=== PATIENT | male | born 1950 | race Caucasian/White ===

== ENCOUNTER 2019-11-30 20:42 | Emergency (ER) | payer BC, OTHER ==
--- NOTE | 2019-11-30 22:19 | ER ---
Nurse's Notes [facility] Name: Sixto Rouse Age: 69 yrs Sex: Male : 1950 Arrival Date: 11/30/2019 Time: 20:49 Bed 15 Private MD: Diagnosis: Postprocedural hemorrhage and hematoma of skin and subcutaneous tissue following a procedure-surgery, shoulder Presentation: 11/30 20:50 Presenting complaint: Patient states: L shoulder surgery today by Dr. Hampton. About 30 ca1 minutes ago,I was watching TV tonight when I felt wet on my armpits. My checked it and it squirted blood. Transition of care: patient was not received from another setting of care. Onset of symptoms was November 30, 2019. Risk Assessment: Do you want to hurt yourself or someone else? Patient reports no desire to harm self or others. Initial Sepsis Screen: Does the patient meet any 2 criteria? No. Patient's initial sepsis screen is negative. Does the patient have a suspected source of infection? No. Patient's initial sepsis screen is negative. Care prior to arrival: Gauze applied on top of existing dressing, instructed pt to apply pressure. 20:50 Method Of Arrival: Ambulatory ca1 20:50 Acuity: WAYNE 4 ca1 Historical: - Allergies: 20:53 No Known Allergies; ca1 - Home Meds: 20:53 None [Active]; ca1 - PMHx: 20:53 Arthritis; insomnia; Hernia; ca1 - PSHx: 20:53 Hernia repair; Shoulder Surg; Knee surgery; ca1 - Immunization history:: Adult Immunizations up to date, Flu vaccine is not up to date. - Coronavirus screen:: The patient has NOT traveled to [place] in the past 14 days. The patient has NOT had contact with known/suspected case of Coronavirus?. - Social history:: Smoking status: Patient reports the use of cigarette tobacco products, smokes one-half pack cigarettes per day. - Ebola Screening: : Patient negative for fever greater than or equal to 101.5 degrees Fahrenheit, and additional compatible Ebola Virus Disease symptoms Patient denies exposure to infectious person Patient denies travel to an Ebola-affected area in the 21 days before illness onset No symptoms or risks identified at this time. Screenin:40 Tuberculosis screening: No symptoms or risk factors identified. sg 22:40 Abuse screen: Denies threats or abuse. Denies injuries from another. Nutritional sg screening: No deficits noted. Fall Risk None identified. Assessment: 22:40 General: Appears in no apparent distress. well groomed, well developed, well nourished, sg Behavior is calm, cooperative, appropriate for age. Pain: Complains of pain in dorsal aspect of left forearm Quality of pain is described as aching. Neuro: Level of Consciousness is awake, alert, obeys commands, Oriented to person, place, time, situation. Cardiovascular: Patient's skin is warm and dry. Chest pain is denied. Respiratory: Airway is patent Respiratory effort is even, unlabored, Respiratory pattern is regular, symmetrical. GI: No signs and/or symptoms were reported involving the gastrointestinal system. : No signs and/or symptoms were reported regarding the genitourinary system. EENT: No signs and/or symptoms were reported regarding the EENT system. Derm: Skin is pink, warm \T\ dry. Musculoskeletal: Circulation, motion, and sensation intact. Injury Description: a surgical incision is noted with ilia that are intact, bright red blood from the lower part of the incision is reported once the area is squeezed, per pt . Vital Signs: 20:53 BP 159 / 89; Pulse 121; Resp 19 S; Pulse Ox 98% on R/A; Weight 90.72 kg (R); Height 6 ca1 ft. 2 in. (187.96 cm) (R); 22:30 BP 142 / 70; Pulse 90; Resp 17; Pulse Ox 100% on R/A; sg 22:34 BP 144 / 80; Temp 98.2; sg 20:53 Body Mass Index 25.68 (90.72 kg, 187.96 cm) ca1 ED Course: 20:49 Patient arrived in ED. ag3 20:52 Triage completed. ca1 20:53 Arm band placed on right wrist. ca1 21:10 Ronan Khan MD is Attending Physician. mike 22:15 Usman Lopez MD is Referral Physician. mike 22:15 Dressings: non-adherent dressing x 1 left shoulder. Wound care: to surgical incision sg located on left shoulder was cleaned with Hibiclens, dressed with 4X4s, SurgiCil, Patient tolerated well. 22:29 Ramu Gómez RN is Primary Nurse. sg 22:40 Patient has correct armband on for positive identification. Bed in low position. Call sg light in reach. 22:40 No provider procedures requiring assistance completed. Patient did not have IV access sg during this emergency room visit. Administered Medications: No medications were administered Outcome: 22:18 Discharge ordered by . mike 22:40 Discharged to home ambulatory, with family. sg 22:40 Condition: good 22:40 Discharge instructions given to patient, family, Instructed on discharge instructions, follow up and referral plans. wound care, Demonstrated understanding of instructions, follow-up care, wound care. 22:43 Patient left the ED. sg Signatures: Ramu Gómez, RN RN Ronan Moya MD MD cha Gomez, Alice ag3 Patito Snowden RN RN ca1
--- NOTE | 2019-11-30 22:19 | EDPHYS ---
Physician Documentation [facility] Name: Sixto Rouse Age: 69 yrs Sex: Male : 1950 Arrival Date: 11/30/2019 Time: 20:49 Bed 15 Private MD: ELIGIO Physician Ronan Khan HPI: 11/30 22:12 This 69 yrs old Male presents to ER via Ambulatory with complaints of Post mike Surgical Bleeding. 22:12 The patient or guardian complains of decreased range of motion, pain, bleeding. left mike shoulder. Context: The problem was sustained at home, at a had shoulder surgery today, no chest pain, no sob , no nv. Associated signs and symptoms: The patient has no apparent associated signs or symptoms. Severity of symptoms: At their worst the symptoms were mild, in the emergency department the symptoms are unchanged. The patient has not experienced similar symptoms in the past. Historical: - Allergies: 20:53 No Known Allergies; ca1 - Home Meds: 20:53 None [Active]; ca1 - PMHx: 20:53 Arthritis; insomnia; Hernia; ca1 - PSHx: 20:53 Hernia repair; Shoulder Surg; Knee surgery; ca1 - Immunization history:: Adult Immunizations up to date, Flu vaccine is not up to date. - Coronavirus screen:: The patient has NOT traveled to [place] in the past 14 days. The patient has NOT had contact with known/suspected case of Coronavirus?. - Social history:: Smoking status: Patient reports the use of cigarette tobacco products, smokes one-half pack cigarettes per day. - Ebola Screening: : Patient negative for fever greater than or equal to 101.5 degrees Fahrenheit, and additional compatible Ebola Virus Disease symptoms Patient denies exposure to infectious person Patient denies travel to an Ebola-affected area in the 21 days before illness onset No symptoms or risks identified at this time. ROS: 22:12 Constitutional: Negative for fever, chills, and weight loss, Eyes: Negative for injury, mike pain, redness, and discharge, ENT: Negative for injury, pain, and discharge, Neck: Negative for injury, pain, and swelling, Cardiovascular: Negative for chest pain, palpitations, and edema, Respiratory: Negative for shortness of breath, cough, wheezing, and pleuritic chest pain, Abdomen/GI: Negative for abdominal pain, nausea, vomiting, diarrhea, and constipation, Back: Negative for injury and pain, : Negative for injury, bleeding, discharge, and swelling, Skin: Negative for injury, rash, and discoloration, Neuro: Negative for headache, weakness, numbness, tingling, and seizure, Psych: Negative for depression, anxiety, suicide ideation, homicidal ideation, and hallucinations, Allergy/Immunology: Negative for hives, rash, and allergies, Endocrine: Negative for neck swelling, polydipsia, polyuria, polyphagia, and marked weight changes, Hematologic/Lymphatic: Negative for swollen nodes, abnormal bleeding, and unusual bruising. 22:12 MS/extremity: Positive for pain, warmth, of the anterior aspect of left shoulder and posterior aspect of left shoulder. Exam: 22:12 Constitutional: This is a well developed, well nourished patient who is awake, alert, mike and in no acute distress. Head/Face: Normocephalic, atraumatic. Eyes: Pupils equal round and reactive to light, extra-ocular motions intact. Lids and lashes normal. Conjunctiva and sclera are non-icteric and not injected. Cornea within normal limits. Periorbital areas with no swelling, redness, or edema. ENT: Nares patent. No nasal discharge, no septal abnormalities noted. Tympanic membranes are normal and external auditory canals are clear. Oropharynx with no redness, swelling, or masses, exudates, or evidence of obstruction, uvula midline. Mucous membranes moist. Neck: Trachea midline, no thyromegaly or masses palpated, and no cervical lymphadenopathy. Supple, full range of motion without nuchal rigidity, or vertebral point tenderness. No Meningismus. Chest/axilla: Normal chest wall appearance and motion. Nontender with no deformity. No lesions are appreciated. Cardiovascular: Regular rate and rhythm with a normal S1 and S2. No gallops, murmurs, or rubs. Normal PMI, no JVD. No pulse deficits. Respiratory: Lungs have equal breath sounds bilaterally, clear to auscultation and percussion. No rales, rhonchi or wheezes noted. No increased work of breathing, no retractions or nasal flaring. Abdomen/GI: Soft, non-tender, with normal bowel sounds. No distension or tympany. No guarding or rebound. No evidence of tenderness throughout. Back: No spinal tenderness. No costovertebral tenderness. Full range of motion. Male : Normal genitalia with no discharge or lesions. Skin: Warm, dry with normal turgor. Normal color with no rashes, no lesions, and no evidence of cellulitis. Neuro: Awake and alert, GCS 15, oriented to person, place, time, and situation. Cranial nerves II-XII grossly intact. Motor strength 5/5 in all extremities. Sensory grossly intact. Cerebellar exam normal. Normal gait. Psych: Awake, alert, with orientation to person, place and time. Behavior, mood, and affect are within normal limits. 22:12 Musculoskeletal/extremity: ROM: limited active range of motion due to pain, limited passive range of motion due to pain, Circulation is intact in all extremities. Sensation intact. Compartment Syndrome exam of affected extremity: is normal. DVT Exam: negative Homans' sign noted on exam, no appreciated bluish discoloration, no erythema, no increased warmth, pain, swelling, tenderness. Vital Signs: 20:53 BP 159 / 89; Pulse 121; Resp 19 S; Pulse Ox 98% on R/A; Weight 90.72 kg (R); Height 6 ca1 ft. 2 in. (187.96 cm) (R); 22:30 BP 142 / 70; Pulse 90; Resp 17; Pulse Ox 100% on R/A; sg 22:34 BP 144 / 80; Temp 98.2; sg 20:53 Body Mass Index 25.68 (90.72 kg, 187.96 cm) ca1 MDM: 21:10 Patient medically screened. [facility] 22:15 Data reviewed: vital signs, nurses notes. [facility] 11/30 22:10 Order name: Vital Signs; Complete Time: 22:30 [facility] 11/30 22:12 Order name: Wound dressing: surgicel, xeroform, pressure dress; Complete Time: 22:30 [facility] Administered Medications: No medications were administered Disposition: 11/30/19 22:18 Discharged to Home. Impression: Postprocedural hemorrhage and hematoma of skin and subcutaneous tissue following a procedure - surgery, shoulder. - Condition is Stable. - Discharge Instructions: Stitches, Shelby, or Adhesive Wound Closure, Sutured Wound Care, Wound Check, Sutured Wound Care, [id number], Wound Care, Stitches, Shelby, or Adhesive Wound Closure, [id number]. - Medication Reconciliation Form, Thank You Letter, Antibiotic Education, Prescription Opioid Use form. - Follow up: Usman Lopez MD; When: 1 - 2 days; Reason: Recheck today's complaints, Continuance of care, Re-evaluation by your physician. - Problem is new. - Symptoms have improved. Signatures: Ramu Gómez RN RN Ronan Moya MD MD cha Acob, Cheryl, RN RN [facility] Corrections: (The following items were deleted from the chart) 22:43 22:18 11/30/2019 22:18 Discharged to Home. Impression: Postprocedural hemorrhage and sg hematoma of skin and subcutaneous tissue following a procedure - surgery, shoulder. Condition is Stable. Forms are Medication Reconciliation Form, Thank You Letter, Antibiotic Education, Prescription Opioid Use. Follow up: Usman Lopez; When: 1 - 2 days; Reason: Recheck today's complaints, Continuance of care, Re-evaluation by your physician. Problem is new. Symptoms have improved. mike
== END 2019-11-30 22:43 | disposition home or self-care (01) ==
LOC: ER 20:42
DX: L76.32 Postprocedural hematoma of skin and subcutaneous tissue following other procedure (principal); F17.210 Nicotine dependence, cigarettes, uncomplicated
CPT/HCPCS: 99283

== ENCOUNTER 2021-05-25 12:28 | Inpatient (IN) | payer OTHER ==
[2021-05-25] MEDS ORDERED: ALBUTEROL 2.5 MG/3 ML NEB SOL ONE (13:53)
[2021-05-25] MEDS ORDERED: IPRATROPIUM BROM 0.5MG/2.5ML ONE (13:53)
--- NOTE | 2021-05-25 13:56 | RAD REPORT ---
EXAM DESCRIPTION: RAD - Chest Single View - 05/25/2021 1:46 pm CLINICAL HISTORY: SOB COMPARISON: Chest Single View dated 10/27/2017 FINDINGS: Patchy airspace disease bilaterally. This is moderate in severity. The heart size is withi n normal limits.No acute osseous abnormality. No significant pleural effusions or pneumothorax. IMPRESSION: Moderate patchy airspace disease bilaterally concerning for multifocal pneumonia, includ ing Covid-19.
[2021-05-25] MEDS ORDERED: dexAMETHasone 10 MG/ML VIAL ONE (14:36)
[2021-05-25 15:04] LABS: Absolute Lymphocytes (CBC) 0.6 K/uL (0.7-4.9); Basophils % 0.3 % (0-1.3); Hematocrit 40.9 % (39.6-49.0); Lymphocytes % 5.2 % (15.3-44.8); MPV 8.9 fL (7.6-11.3); RBC Red Blood Cell Count 4.71 M/uL (4.33-5.43)
[2021-05-25 15:28] LABS: ALT/SGPT 106 U/L (12-78); AST/SGOT 93 U/L (15-37); Albumin 3.4 g/dL (3.4-5.0); Alkaline Phosphatase 70 U/L (45-117); BUN Blood Urea Nitrogen 23 mg/dL (7-18); Bicarbonate 27 mmol/L (21-32); Bilirubin Direct 0.5 mg/dL (0-0.2); Bilirubin Total 1.1 mg/dL (0.2-1.0); Ferritin 1625.3 ng/mL (26-388); Glucose Level 105 mg/dL (74-106); Lipase 116 U/L (73-393); Potassium 3.5 mmol/L (3.5-5.1); Sodium Level 138 mmol/L (136-145); Troponin (Emerg Dept Use Only) < 0.02 ng/mL (0.0-0.045)
[2021-05-25 15:30] LABS: Protime INR 1.22
[2021-05-25] MEDS ORDERED: CEFTRIAXONE/SWI 1gm 1 GM/10 ML SYR ONE (15:40)
--- NOTE | 2021-05-25 16:25 | RAD REPORT ---
EXAM DESCRIPTION: CT - Chest For Pe Angio - 05/25/2021 4:11 pm CLINICAL HISTORY: Cough;SOB COMPARISON: No comparisons FINDINGS: Chest Wall: No suspicious thyroid nodules or pathologic lymphadenopathy. Lungs: Moderate bilateral airspace disease There is a 9 millimeter nodule in the right middle lobe. Pleura: No significant effusions or pneumothorax. Mediastinum/britney: No pathologic lymphadenopathy. Pulmonary arteries/Aorta: No filling defect identified. No aortic aneurysm. Enlarged main pulmonary a rtery. Heart: No significant pericardial effusion. Normal heart size. Upper abdomen: No acute abnormality. Bones: No acute abnormality. IMPRESSION: Negative for pulmonary embolism. Moderate bilateral airspace disease concerning for mult ifocal pneumonia, including Covid-19. 9 millimeter right middle lobe solid nodule. Recommend three-month follow-up chest CT.
[2021-05-25 17:26] LABS: Blood Morphology Comment NOT SEEN (NOT SEEN); Platelet Estimate ADEQ; White Blood Cell Scan OK (OK)
[2021-05-25] MEDS ORDERED: MORPHINE 2 MG/ML SYR IV PRN (19:00)
[2021-05-25] MEDS ORDERED: ONDANSETRON 4 MG/2 ML VIAL IV PRN (19:00)
--- NOTE | 2021-05-25 19:43 | ER ---
Nurse's Notes [facility] Name: Sixto Rouse Age: 71 yrs Sex: Male : 1950 Arrival Date: 05/25/2021 Time: 12:57 Bed 18 Private MD: Diagnosis: SARS-associated coronavirus as the cause of diseases classified elsewhere;Other viral pneumonia;Respiratory failure, unspecified with hypoxia Presentation: 05/25 13:18 Chief complaint: EMS states: Patient is COVID positive since 05/15/21.SOB increased ss over three days 83% on RA 96% on NRB. Coronavirus screen: Client reports previous positive COVID test result. Date of collection: May 15, 2021. 13:18 Method Of Arrival: EMS: [facility] ss 14:10 Ebola Screen: No symptoms or risks identified at this time. Initial Sepsis Screen: Does zb the patient meet any 2 criteria? No. Patient's initial sepsis screen is negative. Does the patient have a suspected source of infection? Yes: No. Patient's initial sepsis screen is negative. Risk Assessment: Do you want to hurt yourself or someone else? Patient reports no desire to harm self or others. Onset of symptoms was May 25, 2021. 14:10 Acuity: WAYNE 2 zb 14:10 Acuity: WAYNE 3 zb Triage Assessment: 15:04 Pain: Denies pain. zb Historical: - PMHx: 14:12 Arthritis; Hernia; insomnia; zb - PSHx: 14:12 None; zb - Immunization history:: Client reports having NOT received the Covid vaccine. - Social history:: Smoking status: Patient reports the use of cigarette tobacco products, smokes one-half pack cigarettes per day. Screenin:08 Abuse screen: Denies threats or abuse. Denies injuries from another. Nutritional zb screening: No deficits noted. Tuberculosis screening: No symptoms or risk factors identified. Fall Risk None identified. Assessment: 14:09 General: Appears uncomfortable, Behavior is calm, cooperative, Reports fever for > 3 zb days, feeling ill for > 3 days, fatigue for >3 days. Neuro: Level of Consciousness is awake, alert, obeys commands, Oriented to person, place, time, situation, Moves all extremities. Full function. Cardiovascular: Patient's skin is warm and dry. Respiratory: Reports shortness of breath at rest Airway is patent Respiratory effort is even, unlabored, Respiratory pattern is regular, symmetrical, Breath sounds are diminished bilaterally. Onset: The symptoms/episode began/occurred 2-3 days ago , the patient has mild shortness of breath. GI: No deficits noted. Derm: Skin is intact, is healthy with good turgor, Skin is dry, Skin is normal. Musculoskeletal: Range of motion: intact in all extremities. 15:02 Reassessment: Patient appears in no apparent distress at this time. Patient and/or zb family updated on plan of care and expected duration. Pain level reassessed. Patient is alert, oriented x 3, equal unlabored respirations, skin warm/dry/pink. 16:30 Reassessment: Patient appears in no apparent distress at this time. Patient and/or zb family updated on plan of care and expected duration. Pain level reassessed. Patient remains on 3L NC at this time. No c/o at this time. denies pain. 17:35 Reassessment: Patient appears in no apparent distress at this time. Patient and/or zb family updated on plan of care and expected duration. Pain level reassessed. Patient remains at 3L NC. no changes at this time. Given urine and remind to urinate. 18:35 Reassessment: Patient appears in no apparent distress at this time. Patient and/or zb family updated on plan of care and expected duration. Pain level reassessed. patient remains on 3L NC. no change at this time. RR WNL. Vital Signs: 13:18 BP 106 / 65; Pulse 109; Pulse Ox 96% on Non-rebreather mask; ss 14:06 BP 139 / 73; Pulse 105; Resp 20; Temp 97.9(TE); Pulse Ox 94% on 3 lpm NC; Weight 95.25 zb kg; Height 6 ft. 3 in. (190.50 cm); Pain 0/10; 15:02 BP 113 / 62; Pulse 88; Resp 20; Pulse Ox 95% on 3 lpm NC; zb 16:45 BP 108 / 76; Pulse 62; Resp 18; Pulse Ox 100% 3 lpm ; zb 17:45 BP 105 / 68; Pulse 83; Resp 19; Pulse Ox 100% on 3 lpm NC; zb 18:33 BP 101 / 75; Pulse 109; Resp 18; Pulse Ox 100% on 3 lpm NC; zb 14:06 Body Mass Index 26.25 (95.25 kg, 190.50 cm) zb ED Course: 12:57 Patient arrived in ED. kdr 12:57 Kolton Herrera MD is Attending Physician. kdr 13:44 CXR XRAY In Process Unspecified. EDMS 14:05 Mavis Falcon RN is Primary Nurse. zb 14:11 Triage completed. zb 14:11 Arm band placed on. zb 14:45 Initial lab(s) drawn, by ED staff, sent to lab. First set of blood cultures drawn by ED zb staff, EKG done, by ED staff, reviewed by Kolton Herrera MD. 15:03 Inserted saline lock: 20 gauge in left antecubital area, using aseptic technique. Blood zb collected. 15:04 Patient has correct armband on for positive identification. Bed in low position. Call zb light in reach. Side rails up X 1. mail forwarding system markup clerk on. Pulse ox on. NIBP on. Door closed. Noise minimized. 16:11 CT Chest For PE Angio In Process Unspecified. EDMS 19:41 Deniz Minor MD is Hospitalizing Provider. kdr 05/28 06:11 Primary Nurse role handed off by Mavis Falcon RN mw2 Administered Medications: 05/25 14:13 Drug: Xopenex (levalbuterol) (3) 1.25 mg {Note: administered by RT .} Route: Inhalation;zb 15:44 Follow up: Response: No adverse reaction; Marked relief of symptoms zb 14:40 Drug: Decadron - Dexamethasone 10 mg Route: IVP; Site: left antecubital; zb 15:43 Follow up: Response: No adverse reaction; Marked relief of symptoms zb 15:41 Drug: Rocephin - (cefTRIAXone) 1 grams Route: IVPB; Infused Over: 30 mins; Site: left zb antecubital; Outcome: 19:42 Decision to Hospitalize by Provider. kdr 05/28 14:19 Patient left the ED. iw Signatures: Dispatcher [employer] EDMS Kolton Herrera MD MD [facility] Mable Bojorquez RN RN Misty Ashby RN RN Naman Benton mw2 Mavis Falcon, RN RN zb Corrections: (The following items were deleted from the chart) 05/25 16:40 13:18 Chief complaint: EMS states: Patient is COVID positive since 05/15/21.SOB ss increased over three days *3% on RA 96% on NRB ss
--- NOTE | 2021-05-25 19:43 | EDPHYS ---
Physician Documentation [facility] Name: Sixto Rouse Age: 71 yrs Sex: Male : 1950 Arrival Date: 05/25/2021 Time: 12:57 Bed 18 Private MD: ED Physician Kolton Herrera HPI: 05/25 19:05 This 71 yrs old Male presents to ER via EMS with complaints of Shortness of kdr breath and chest pain. 19:05 The patient has shortness of breath at rest, with light activity. Onset: The kdr symptoms/episode began/occurred gradually, The patient was diagnosed with Covid on May 15. Since then he has become increasingly short of breath. At home for the last 3 days he has been satting in the mid 80s. On nonrebreather mask he improved to 96%.. Duration: The symptoms are continuous, and are steadily getting worse. The patient's shortness of breath is aggravated by exertion, light activity. Associated signs and symptoms: Pertinent positives: chest pain, dizziness, nausea. Severity of symptoms: At their worst the symptoms were mild moderate in the emergency department the symptoms are unchanged. The patient has not experienced similar symptoms in the past. The patient has been recently seen by a physician: the patient's primary care provider. Historical: - PMHx: 14:12 Arthritis; Hernia; insomnia; zb - PSHx: 14:12 None; zb - Immunization history:: Client reports having NOT received the Covid vaccine. - Social history:: Smoking status: Patient reports the use of cigarette tobacco products, smokes one-half pack cigarettes per day. ROS: 19:05 Constitutional: Negative for fever, chills, and weight loss, Eyes: Negative for injury, kdr pain, redness, and discharge, ENT: Negative for injury, pain, and discharge, Neck: Negative for injury, pain, and swelling, Cardiovascular: Negative for chest pain, palpitations, and edema, Abdomen/GI: Negative for abdominal pain, nausea, vomiting, diarrhea, and constipation, Back: Negative for injury and pain, : Negative for injury, bleeding, discharge, and swelling, MS/Extremity: Negative for injury and deformity, Skin: Negative for injury, rash, and discoloration, Neuro: Negative for headache, weakness, numbness, tingling, and seizure activity. Psych: Negative for depression, anxiety, suicide ideation, homicidal ideation, and hallucinations, Allergy/Immunology: Negative for hives, rash, and allergies, Endocrine: Negative for neck swelling, polydipsia, polyuria, polyphagia, and marked weight changes, Hematologic/Lymphatic: Negative for swollen nodes, abnormal bleeding, and unusual bruising. 19:05 Respiratory: Positive for dyspnea on exertion, shortness of breath, on exertion. Negative for hemoptysis, orthopnea, pleurisy, wheezing. Exam: 19:05 Constitutional: This is a well developed, well nourished patient who is awake, alert, kdr and in no acute distress. Head/Face: Normocephalic, atraumatic. Eyes: Pupils equal round and reactive to light, extra-ocular motions intact. Lids and lashes normal. Conjunctiva and sclera are non-icteric and not injected. Cornea within normal limits. Periorbital areas with no swelling, redness, or edema. Neck: Trachea midline, no thyromegaly or masses palpated, and no cervical lymphadenopathy. Supple, full range of motion without nuchal rigidity, or vertebral point tenderness. No Meningismus. Chest/axilla: Normal chest wall appearance and motion. Nontender with no deformity. No lesions are appreciated. Cardiovascular: Regular rate and rhythm with a normal S1 and S2. No gallops, murmurs, or rubs. Normal PMI, no JVD. No pulse deficits. Abdomen/GI: Soft, non-tender, with normal bowel sounds. No distension or tympany. No guarding or rebound. No evidence of tenderness throughout. Back: No spinal tenderness. No costovertebral tenderness. Full range of motion. Skin: Warm, dry with normal turgor. Normal color with no rashes, no lesions, and no evidence of cellulitis. MS/ Extremity: Pulses equal, no cyanosis. Neurovascular intact. Full, normal range of motion. Neuro: Awake and alert, GCS 15, oriented to person, place, time, and situation. Cranial nerves II-XII grossly intact. Motor strength 5/5 in all extremities. Sensory grossly intact. Cerebellar exam normal. Normal gait. Psych: Awake, alert, with orientation to person, place and time. Behavior, mood, and affect are within normal limits. 19:05 Respiratory: mild respiratory distress is noted, Respirations: normal, Breath sounds: rales, rhonchi, + upper airway congestion. wheezing: that is moderate, is heard diffusely. Vital Signs: 13:18 BP 106 / 65; Pulse 109; Pulse Ox 96% on Non-rebreather mask; ss 14:06 BP 139 / 73; Pulse 105; Resp 20; Temp 97.9(TE); Pulse Ox 94% on 3 lpm NC; Weight 95.25 zb kg; Height 6 ft. 3 in. (190.50 cm); Pain 0/10; 15:02 BP 113 / 62; Pulse 88; Resp 20; Pulse Ox 95% on 3 lpm NC; zb 16:45 BP 108 / 76; Pulse 62; Resp 18; Pulse Ox 100% 3 lpm ; zb 17:45 BP 105 / 68; Pulse 83; Resp 19; Pulse Ox 100% on 3 lpm NC; zb 18:33 BP 101 / 75; Pulse 109; Resp 18; Pulse Ox 100% on 3 lpm NC; zb 14:06 Body Mass Index 26.25 (95.25 kg, 190.50 cm) zb MDM: 19:05 Differential diagnosis: Anemia CHF exacerbation, Chronic Obstructive Pulmonary Disease kdr pneumonia. Data reviewed: vital signs, nurses notes. Counseling: I had a detailed discussion with the patient and/or guardian regarding: the historical points, exam findings, and any diagnostic results supporting the discharge/admit diagnosis, lab results, radiology results. ED course: Patient remained stable in the emergency department. He was admitted to the hospitalist service without complication.. 19:42 Patient medically screened. kdr 05/25 13:03 Order name: BMP kdr 05/25 13:03 Order name: Blood Culture Adult (2) kdr 05/25 13:03 Order name: C-Reactive Protein kdr 05/25 13:03 Order name: CBC with Diff kdr 05/25 13:03 Order name: D-Dimer kdr 05/25 13:03 Order name: Ferritin; Complete Time: 15:34 kdr 05/25 13:03 Order name: Flu; Complete Time: 16:35 kdr 05/25 13:03 Order name: LFT's; Complete Time: 15:34 kdr 05/25 13:03 Order name: Lactate; Complete Time: 15:34 kdr 05/25 13:03 Order name: Lipase; Complete Time: 15:34 kdr 05/25 13:03 Order name: PT-INR; Complete Time: 15:34 kdr 05/25 13:03 Order name: Procalcitonin; Complete Time: 15:34 kdr 05/25 13:03 Order name: Ptt, Activated; Complete Time: 15:34 kdr 05/25 13:03 Order name: Strep; Complete Time: 15:34 kdr 05/25 13:03 Order name: Troponin (emerg Dept Use Only); Complete Time: 15:34 kdr 05/25 13:03 Order name: Urine Microscopic Only kdr 05/25 13:04 Order name: Basic Metabolic Panel; Complete Time: 15:34 EDMS 05/25 13:04 Order name: Blood Culture EDMS 05/25 13:04 Order name: C-Reactive Protein; Complete Time: 15:34 EDMS 05/25 13:04 Order name: CBC with Automated Diff EDMS 05/25 13:04 Order name: D-Dimer; Complete Time: 15:34 EDMS 05/25 15:27 Order name: Throat Culture EDMS 05/25 17:26 Order name: CBC Smear Scan EDMS 05/25 19:02 Order name: C-Reactive Protein EDMS 05/25 19:02 Order name: C-Reactive Protein EDMS 05/25 19:02 Order name: Comprehensive Metabolic Panel EDMS 05/25 19:02 Order name: Comprehensive Metabolic Panel EDMS 05/25 19:02 Order name: D-Dimer EDMS 05/25 19:02 Order name: D-Dimer EDMS 05/25 19:02 Order name: Ferritin EDMS 05/25 13:03 Order name: CXR XRAY; Complete Time: 14:53 kdr 05/25 13:03 Order name: EKG; Complete Time: 13:04 kdr 05/25 13:03 Order name: Cardiac monitoring; Complete Time: 15:12 kdr 05/25 13:03 Order name: Droplet/Contact Precautions; Complete Time: 15:12 kdr 05/25 13:03 Order name: EKG - Nurse/Tech; Complete Time: 15:12 kdr 05/25 15:36 Order name: CT Chest For PE Angio; Complete Time: 16:35 kdr 05/25 19:02 Order name: Ferritin EDMS 05/25 19:02 Order name: Lipid Profile EDMS 05/25 19:02 Order name: Lipid Profile EDMS 05/25 19:03 Order name: Regular EDMS 05/25 19:03 Order name: CBC with Automated Diff EDMS 05/25 19:03 Order name: CBC with Automated Diff EDMS 05/25 22:29 Order name: Urine Dipstick-Ancillary EDMS 05/26 10:17 Order name: Glucose, Ancillary Testing EDMS 05/26 14:02 Order name: US EDMS 05/27 04:11 Order name: CBC with Automated Diff EDMS 05/27 04:24 Order name: Comprehensive Metabolic Panel EDMS 05/27 04:24 Order name: C-Reactive Protein EDMS 05/27 04:24 Order name: Magnesium EDMS 05/27 04:24 Order name: Ferritin EDMS 05/27 05:35 Order name: Manual Differential EDMS 05/27 08:02 Order name: Urine Culture EDMS 05/27 08:23 Order name: RAD EDMS 05/28 03:44 Order name: Comprehensive Metabolic Panel EDMS 05/28 03:44 Order name: C-Reactive Protein EDMS 05/28 03:44 Order name: Magnesium EDMS 05/28 03:44 Order name: Ferritin EDMS 05/28 03:47 Order name: CBC with Automated Diff EDMS 05/25 13:03 Order name: IV Start; Complete Time: 15:44 kdr 05/25 13:03 Order name: Labs collected and sent; Complete Time: 15:45 kdr 05/25 13:03 Order name: O2 Per Protocol; Complete Time: 15:12 kdr 05/25 13:03 Order name: O2 Sat Monitoring; Complete Time: 15:12 kdr 05/25 13:03 Order name: Urine Dipstick-Ancillary (obtain specimen); Complete Time: 22:44 kdr Administered Medications: 14:13 Drug: Xopenex (levalbuterol) (3) 1.25 mg {Note: administered by RT .} Route: Inhalation;zb 15:44 Follow up: Response: No adverse reaction; Marked relief of symptoms zb 14:40 Drug: Decadron - Dexamethasone 10 mg Route: IVP; Site: left antecubital; zb 15:43 Follow up: Response: No adverse reaction; Marked relief of symptoms zb 15:41 Drug: Rocephin - (cefTRIAXone) 1 grams Route: IVPB; Infused Over: 30 mins; Site: left zb antecubital; Disposition Summary: 05/25/21 19:42 Hospitalization Ordered Hospitalization Status: Inpatient Admission kdr Provider: Deniz Minor Condition: Fair kdr Problem: new kdr Symptoms: have improved kdr Bed/Room Type: Standard kdr Location: Telemetry/MedSurg (Inpatient)(05/28/21 12:39) dw Room Assignment: 427(05/28/21 12:39) dw Diagnosis - SARS-associated coronavirus as the cause of diseases classified elsewhere kdr - Other viral pneumonia kdr - Respiratory failure, unspecified with hypoxia kdr Forms: - Medication Reconciliation Form kdr - SBAR form kdr Signatures: Dispatcher [employer] EDMS Jacey Kirby RN Isabelle Borrero RN Kolton Penaloza MD MD kdr Smirch, Shelby, RN RN ss Brown, Zipporah, RN RN zb Corrections: (The following items were deleted from the chart) 20:33 19:42 Telemetry/MedSurg (Inpatient) kdr mw 20:33 19:42 kdr mw 22:44 13:03 Sanders ordered. kdr ld1 05/28 12:39 05/25 20:33 [facility] ER HOLD mw dw 05/28 12:39 05/25 20:33 ERHOLD- mw dw
[2021-05-25 20:53] VITALS: BMI 26.6
[2021-05-25] MEDS: APIXABAN 5 MG TABLET PO SCH (21:00)
[2021-05-25] MEDS ORDERED: METHYLPREDNISOLONE 40 MG INJ IV SCH (21:00)
[2021-05-25 22:28] LABS: Urine Blood Negative (Negative); Urine Glucose Negative (Negative); Urine Protein 1+ (Negative); Urine Specific Gravity 1.015 (1.005-1.030); Urine pH 5.5 (5.0-7.0)
[2021-05-25] MEDS ORDERED: METHYLPREDNISOLONE 40 MG INJ ONE (22:39)
[2021-05-25] MEDS ORDERED: APIXABAN 5 MG TABLET ONE (22:39)
[2021-05-25 22:48] LABS: Urine Bacteria 20-50 /HPF (NONE SEEN); Urine Mucus 1+ /HPF (NONE SEEN); Urine RBC <5 /HPF (NONE SEEN)
[2021-05-26 04:46] LABS: Absolute Lymphocytes (CBC) 0.4 K/uL (0.7-4.9); Basophils % 0.2 % (0-1.3); Hematocrit 37.3 % (39.6-49.0); Lymphocytes % 5.8 % (15.3-44.8); MPV 8.2 fL (7.6-11.3); RBC Red Blood Cell Count 4.33 M/uL (4.33-5.43)
[2021-05-26 05:21] LABS: ALT/SGPT 76 U/L (12-78); AST/SGOT 57 U/L (15-37); Albumin 2.9 g/dL (3.4-5.0); Alkaline Phosphatase 55 U/L (45-117); BUN Blood Urea Nitrogen 24 mg/dL (7-18); Bicarbonate 30 mmol/L (21-32); Bilirubin Total 0.6 mg/dL (0.2-1.0); Ferritin 1563.6 ng/mL (26-388); Glucose Level 147 mg/dL (74-106); HDL Cholesterol 52 mg/dL (40-60); LDL Cholesterol, Calculated 54 (<130); Potassium 4.3 mmol/L (3.5-5.1); Protein, Total 7.2 g/dL (6.4-8.2); Sodium Level 137 mmol/L (136-145)
--- NOTE | 2021-05-26 05:41 | P.HP ---
Certification for Inpatient Patient admitted to: Inpatient With expected LOS: >2 Midnights Patient will require the following post-hospital care: None Practitioner: I am a practitioner with admitting privileges, knowledge of patient current condition, hospital course, and medical plan of care. Services: Services provided to patient in accordance with Admission requirements found in Title 42 Section 412.3 of the Code of Federal Regulations Patient History Date of Service: 05/25/21 Reason for admission: COVID-19 pneumonia History of Present Illness: Patient is a 71-year-old gentleman who came to the hospital with shortness of breath. Patient was found have COVID-19 pneumonia. Patient was severely hypoxic. He is been diagnosed for over a week. He is on vaccinated. His oxygen level was 70% when EMS arrived and on oxygen he went up into the 90s. Currently he is on 5-6 L and satting 96%. Will try to get an weaned down. Hopefully, he can go home in the next 48-72 hr. Will need to arrange for home oxygen. Continue with standard care for COVID-19 pneumonia. Patient is over 10 days out and does not really meet criteria for any monoclonal antibodies. Will start him on IV steroids and will go ahead and monitor him closely. Patient is a smoker. Allergies No Known Allergies Allergy (Unverified 10/28/17 00:45) - Past Medical/Surgical History Has patient received pneumonia vaccine in the past: Yes -: Tobacco abuse Past Surgical History: Patient denies surgical history - Family History Father Family History: Reviewed- Non-Contributory - Social History Smoking Status: Unknown if ever smoked Alcohol use: No CD- Drugs: No Review of Systems 10-point ROS is otherwise unremarkable Physical Examination - Vital Signs Temperature: 97.9 F Blood Pressure: 102/86 Pulse: 74 Respirations: 22 Pulse Ox (%): 95 - Physical Exam General: Alert, In no apparent distress, Oriented x3 HEENT: Atraumatic, PERRLA, Mucous membr. moist/pink, EOMI, Sclerae nonicteric Neck: Supple, 2+ carotid pulse no bruit, No LAD, Without JVD or thyroid abnormality Respiratory: Diminished, Expiratory wheezes Cardiovascular: Regular rate/rhythm, Normal S1 S2, No murmurs Gastrointestinal: Normal bowel sounds, Soft and benign, Non-distended, No tenderness Musculoskeletal: No clubbing, No swelling, No tenderness Integumentary: No rashes Neurological: Normal gait, Normal speech, Normal strength at 5/5 x4 extr, Normal tone, Sensation intact, Cranial nerves 3-12 intact, Normal affect Lymphatics: No axilla or inguinal lymphadenopathy - Studies Laboratory Data (last 24 hrs) 05/25/21 14:30: PT 14.1 H, INR 1.22, APTT 26.9 05/25/21 14:30: WBC 10.60, Hgb 13.9, Hct 40.9, Plt Count 180 05/25/21 14:30: Sodium 138, Potassium 3.5, BUN 23 H, Creatinine 0.99, Glucose 105, Total Bilirubin 1.1 H, AST 93 H, ALT 106 H, Alkaline Phosphatase 70, Lipase 116 Microbiology Data (last 24 hrs): 05/25/21 14:45 Nasopharnyx Influenza Type A Antigen Screen - Final 05/25/21 14:45 Nasopharnyx Influenza Type B Antigen Screen - Final 05/25/21 14:30 Throat Group A Streptococcus Rapid Screen - Final Assessment & Plan - Problems (Diagnosis) (1) Pneumonia due to COVID-19 virus Current Visit: Yes Status: Acute (2) Hypoxemia Current Visit: Yes Status: Acute (3) Tobacco abuse Current Visit: Yes Status: Acute - Plan 1. Continue with IV steroids 2. Monitor inflammatory markers 3. Repeat chest x-ray if symptoms are progressively worsening 4. O2 per protocol 5. Pulmonary consultation if symptoms worsen 6. Continue with albuterol inhaler therapy; also supportive care 7. GI and DVT prophylaxis Discharge Plan: Home Plan to discharge in: Greater than 2 days - Advance Directives Does patient have a Living Will: No Does patient have a Durable POA for Healthcare: No - Code Status/Comfort Care Code Status Assessed: Yes Code Status: Full Code Critical Care: No Time Spent Managing PTS Care (In Minutes): 45
--- NOTE | 2021-05-26 08:17 | P.PN ---
Subjective Date of Service: 05/26/21 Primary Care Provider: Dr. Burris Chief Complaint: COVID-19 pneumonia Subjective: Other (Patient stable at this time. Still with cough. Currently on 3 L per nasal cannula) Physical Examination - Vital Signs Temperature: 97.9 F Blood Pressure: 102/86 Pulse: 74 Respirations: 22 Pulse Ox (%): 95 - Studies Laboratory Data (last 24 hrs) 05/25/21 14:30: PT 14.1 H, INR 1.22, APTT 26.9 05/25/21 14:30: WBC 10.60, Hgb 13.9, Hct 40.9, Plt Count 180 05/25/21 14:30: Sodium 138, Potassium 3.5, BUN 23 H, Creatinine 0.99, Glucose 105, Total Bilirubin 1.1 H, AST 93 H, ALT 106 H, Alkaline Phosphatase 70, Lipase 116 Microbiology Data (last 24 hrs): 05/25/21 14:45 Nasopharnyx Influenza Type A Antigen Screen - Final 05/25/21 14:45 Nasopharnyx Influenza Type B Antigen Screen - Final 05/25/21 14:30 Throat Group A Streptococcus Rapid Screen - Final Assessment & Plan Discharge Plan: Home Plan to discharge in: 24 Hours Physician Review Additional Text: COVID: Positive, unvaccinated Initial chest x-ray: COMPARISON: Chest Single View dated 10/27/2017 FINDINGS: Patchy airspace disease bilaterally. This is moderate in severity. The heart size is within normal limits.No acute osseous abnormality. No sign ificant pleural effusions or pneumothorax. IMPRESSION: Moderate patchy airspace disease bilaterally concerning for multifocal pneumonia, including Covid-19. CT chest: COMPARISON: No comparisons FINDINGS: Chest Wall: No suspicious thyroid nodules or pathologic lymphadenopathy. Lungs: Moderate bilateral airspace disease There is a 9 millimeter nodule in the right middle lobe. Pleura: No significant effusions or pneumothorax. Mediastinum/britney: No pathologic lymphadenopathy. Pulmonary arteries/Aorta: No filling defect identified. No aortic aneurysm. Enlarged main pulmonary artery. Heart: No significant pericardial effusion. Normal heart size. Upper abdomen: No acute abnormality. Bones: No acute abnormality. IMPRESSION: Negative for pulmonary embolism. Moderate bilateral airspace disease concerning for multifocal pneumonia, including Covid-19. 9 millimeter right middle lobe solid nodule. Recommend three-month follow-up chest CT. Physical exam: General: Alert, In no apparent distress, Oriented x3 HEENT: Atraumatic, PERRLA, Mucous membr. moist/pink, EOMI, Sclerae nonicteric Neck: Supple, 2+ carotid pulse no bruit, No LAD, Without JVD or thyroid abnormality Respiratory: Better air movement noted. Currently on 3 L per nasal cannula. Cardiovascular: Regular rate/rhythm, Normal S1 S2, No murmurs Gastrointestinal: Normal bowel sounds, Soft and benign, Non-distended, No tenderness Musculoskeletal: No clubbing, No swelling, No tenderness Integumentary: No rashes Neurological: Normal gait, Normal speech, Normal strength at 5/5 x4 extr, Normal tone, Sensation intact, Cranial nerves 3-12 intact, Normal affect Lymphatics: No axilla or inguinal lymphadenopathy Impression: Dyspnea secondary to bilateral Covid pneumonia with hypoxia Tobacco abuse CT scan showing 9 mm right middle lobe solid nodule Elevated liver function suspect fatty liver Plan: Dyspnea secondary to bilateral Covid pneumonia with hypoxia: Patient currently stable at this time. Some desaturations with movement. Currently on 3 L per nasal cannula. Continue IV steroids, ivermectin and supplementation. CRP and ferritin elevated. Elevated liver function tests noted. Patient likely not a candidate for baricitinib due to elevated liver function. Likely underlying fatty liver. Will check ultrasound. Pulmonology consulted. Await recommendation. Encourage proning, ambulation and incentive spirometer. Will provide medication for cough. Continue to wean off oxygen with the help of respiratory. Maintain sats above 93%. Continue to reassess. Patient on DVT prophylaxisEliquis due to elevated D-dimer. CT scan unremarkable for pulmonary embolism. Likely home within the next 24 to 48 hours with oxygen. Tobacco abuse: Encourage cessation. May need nicotine patch as needed. CT scan showing 9 mm right middle lobe solid nodule: This can be followed up as an outpatient. Recommend repeat CT scan in 3 months with pulmonology. Elevated liver function suspect fatty liver: Continue to monitor liver function test. Will check liver ultrasound. CODE STATUS: Full code DVT prophylaxis: Eliquis Advanced care [email or web address] minutes: Home at discharge Time Spent Managing Pts Care (In Minutes): 55
[2021-05-26] MEDS: APIXABAN 5 MG TABLET PO SCH ×2 (09:00→21:03)
[2021-05-26] MEDS: FAMOTIDINE 20 MG TAB PO SCH ×2 (09:00→21:03)
[2021-05-26] MEDS: VITAMIN D 1000 UNIT TAB PO SCH (09:00)
[2021-05-26] MEDS: THIAMINE HCL 100 MG TABLET PO SCH ×2 (09:00→21:04)
[2021-05-26] MEDS: ASCORBIC ACID 500 MG TABLET PO SCH ×4 (09:00→21:04)
[2021-05-26] MEDS: ASPIRIN EC 81 MG TAB PO SCH (09:00)
[2021-05-26] MEDS: METHYLPREDNISOLONE 40 MG INJ IV SCH ×3 (09:00→21:04)
[2021-05-26] MEDS: ZINC SULFATE 220 MG CAP PO SCH (09:00)
[2021-05-26] MEDS ORDERED: THIAMINE HCL 100 MG TABLET ONE ×2 (09:45→21:12)
[2021-05-26] MEDS ORDERED: METHYLPREDNISOLONE 125 MG INJ ONE ×2 (09:45→16:33)
[2021-05-26] MEDS ORDERED: ASCORBIC ACID 500 MG TABLET ONE ×3 (09:45→21:12)
[2021-05-26] MEDS ORDERED: APIXABAN 5 MG TABLET ONE ×2 (09:46→21:12)
[2021-05-26] MEDS ORDERED: VITAMIN D 1000 UNIT TAB ONE (09:46)
[2021-05-26] MEDS ORDERED: ZINC SULFATE 220 MG CAP ONE (09:46)
[2021-05-26] MEDS ORDERED: ASPIRIN EC 81 MG TAB PO ONE (09:46)
[2021-05-26] MEDS ORDERED: FAMOTIDINE 20 MG TAB ONE ×2 (09:46→21:12)
--- NOTE | 2021-05-26 14:01 | RAD REPORT ---
EXAM DESCRIPTION: US - Liver Only - 05/26/2021 1:29 pm CLINICAL HISTORY: elevated liver function, suspect fatty liver COMPARISON: <Comparisons> TECHNIQUE: Sonographic evaluation of the right upper quadrant was performed as a dedicated liver ult rasound study. FINDINGS: Assessment is limited by the patient's inability to adequately suspend respiration and pisano ited mobility. Liver is 15 cm. No focal liver lesion is identifiable. No portal vein abnormality seen. Liver echogen icity is increased in a pattern typical for hepatic steatosis. No ascites was seen. Spleen is borderl ine enlarged at 13.5 cm. IMPRESSION: Fatty infiltration of a normal size liver. No focal liver lesions seen.
[2021-05-26] MEDS: ACETAMINOPHEN 500 MG TAB PO PRN (21:04)
[2021-05-26] MEDS ORDERED: METHYLPREDNISOLONE 40 MG INJ ONE (21:12)
[2021-05-26] MEDS ORDERED: ACETAMINOPHEN 500 MG TAB ONE (21:19)
[2021-05-27 03:37] LABS: Absolute Lymphocytes (CBC) 0.6 K/uL (0.7-4.9); Basophils % 0.2 % (0-1.3); Hematocrit 37.1 % (39.6-49.0); Lymphocytes % 2.4 % (15.3-44.8); MPV 8.8 fL (7.6-11.3)
[2021-05-27 04:23] LABS: ALT/SGPT 63 U/L (12-78); AST/SGOT 53 U/L (15-37); Albumin 2.8 g/dL (3.4-5.0); Alkaline Phosphatase 50 U/L (45-117); BUN Blood Urea Nitrogen 30 mg/dL (7-18); Bicarbonate 30 mmol/L (21-32); Bilirubin Total 0.6 mg/dL (0.2-1.0); Ferritin 1602.4 ng/mL (26-388); Glucose Level 143 mg/dL (74-106); Magnesium 2.5 mg/dL (1.8-2.4); Potassium 4.2 mmol/L (3.5-5.1); Protein, Total 7.1 g/dL (6.4-8.2); Sodium Level 138 mmol/L (136-145)
[2021-05-27 05:35] LABS: Blood Morphology Comment NOT SEEN (NOT SEEN); Platelet Estimate ADEQ
--- NOTE | 2021-05-27 06:29 | P.PN ---
Subjective Date of Service: 05/27/21 Primary Care Provider: Dr. Burris Chief Complaint: COVID-19 pneumonia Subjective: Improving (Patient appears improved. Currently on 6 L per nasal cannula.) Physical Examination - Vital Signs Temperature: 98.6 F Blood Pressure: 134/70 Pulse: 65 Respirations: 26 Pulse Ox (%): 88 Assessment & Plan Discharge Plan: Home Plan to discharge in: 48 Hours Physician Review Additional Text: COVID: Positive, unvaccinated Initial chest x-ray: COMPARISON: Chest Single View dated 10/27/2017 FINDINGS: Patchy airspace disease bilaterally. This is moderate in severity. The heart size is within normal limits.No acute osseous abnormality. No significant pleural effusions or pneumothorax. IMPRESSION: Moderate patchy airspace disease bilaterally concerning for multifocal pneumonia, including Covid-19. CT chest: COMPARISON: No comparisons FINDINGS: Chest Wall: No suspicious thyroid nodules or pathologic lym phadenopathy. Lungs: Moderate bilateral airspace disease There is a 9 millimeter nodule in the right middle lobe. Pleura: No significant effusions or pneumothorax. Mediastinum/britney: No pathologic lymphadenopathy. Pulmonary arteries/Aorta: No filling defect identified. No aortic aneurysm. Enlarged main pulmonary artery. Heart: No significant pericardial effusion. Normal heart size. Upper abdomen: No acute abnormality. Bones: No acute abnormality. IMPRESSION: Negative for pulmonary embolism. Moderate bilateral airspace disease concerning for multifocal pneumonia, including Covid-19. 9 millimeter right middle lobe solid nodule. Recommend three-month follow-up chest CT. Follow-up chest x-ray 05/27/2021: COMPARISON: Chest Single View dated 05/25/2021; Chest Single View dated 10/27/2017; Chest For Pe Angio dated 05/25/2021 FINDINGS: Moderate multifocal airspace disease which is unchanged since 05/25/2021. Cardiomegaly.No acute osseous abnormality. No significant pleural effusions or pneumothorax. IMPRESSION: Moderate bilateral airspace disease concerning for multifocal pneumonia which is unchanged. Liver ultrasound: COMPARISON: <Comparisons> TECHNIQUE: Sonographic evaluation of the right upper quadrant was performed as a dedicated liver ultrasound study. FINDINGS: Assessment is limited by the patient's inability to adequately suspe nd respiration and limited mobility. Liver is 15 cm. No focal liver lesion is identifiable. No portal vein abnormality seen. Liver echogenicity is increased in a pattern typical for hepatic steatosis. No ascites was seen. Spleen is borderline enlarged at 13.5 cm. IMPRESSION: Fatty infiltration of a normal size liver. No focal liver lesions seen. Physical exam: General: Alert, In no apparent distress, Oriented x3 HEENT: Atraumatic, PERRLA, Mucous membr. moist/pink, EOMI, Sclerae nonicteric Neck: Supple, 2+ carotid pulse no bruit, No LAD, Without JVD or thyroid abnor mality Respiratory: Better air movement noted. Currently on 3 L per nasal cannula. Cardiovascular: Regular rate/rhythm, Normal S1 S2, No murmurs Gastrointestinal: Normal bowel sounds, Soft and benign, Non-distended, No tenderness Musculoskeletal: No clubbing, No swelling, No tenderness Integumentary: No rashes Neurological: Normal gait, Normal speech, Normal strength at 5/5 x4 extr, Normal tone, Sensation intact, Cranial nerves 3-12 intact, Normal affect Lymphatics: No axilla or inguinal lymphadenopathy Impression: Dyspnea secondary to bilateral Covid pneumonia with hypoxia Tobacco abuse CT scan showing 9 mm right middle lobe solid nodule Elevated liver function suspect fatty liver Plan: Dyspnea secondary to bilateral Covid pneumonia with hypoxia: Patient continues to slowly improve. Currently on 6 L per nasal cannula. Continue IV steroids but decrease dose due to elevated white count. White count elevated. Will s tart IV Rocephin. We will monitor this closely. Await recommendations by pulmonology. Encourage proning, ambulation and incentive spirometer. Will provide medication for cough. Continue to wean off oxygen with the help of respiratory. Maintain sats above 93%. Continue to reassess. Patient on DVT prophylaxisEliquis due to elevated D-dimer. CT scan unremarkable for pulmonary embolism. CT scan showing 9 mm right middle lobe solid nodule: This can be followed up as an outpatient. Recommend repeat CT scan in 3 months with pulmonology. Elevated liver function suspect fatty liver: Continue to monitor liver function test. Will check liver ultrasound. CODE STATUS: Full code DVT prophylaxis: Eliquis Advanced care [id number] minutes: Home at discharge Time Spent Managing Pts Care (In Minutes): 55
--- NOTE | 2021-05-27 08:23 | RAD REPORT ---
EXAM DESCRIPTION: RAD - Chest Single View - 05/27/2021 5:01 am CLINICAL HISTORY: Follow up COVID COMPARISON: Chest Single View dated 05/25/2021; Chest Single View dated 10/27/2017; Chest For Pe Angio dated 05/25/2021 FINDINGS: Moderate multifocal airspace disease which is unchanged since 05/25/2021. Cardiomegaly.No acute osseous abnormality. No significant pleural effusions or pneumothorax. IMPRESSION: Moderate bilateral airspace disease concerning for multifocal pneumonia which is unchang ed.
[2021-05-27] MEDS: VITAMIN D 1000 UNIT TAB PO SCH (09:00)
[2021-05-27] MEDS: ZINC SULFATE 220 MG CAP PO SCH (09:00)
[2021-05-27] MEDS: ASCORBIC ACID 500 MG TABLET PO SCH ×4 (09:00→20:48)
[2021-05-27] MEDS: FAMOTIDINE 20 MG TAB PO SCH ×2 (09:00→20:48)
[2021-05-27] MEDS: APIXABAN 5 MG TABLET PO SCH ×2 (09:00→20:48)
[2021-05-27] MEDS: ASPIRIN EC 81 MG TAB PO SCH (09:00)
[2021-05-27] MEDS: THIAMINE HCL 100 MG TABLET PO SCH ×2 (09:00→21:00)
[2021-05-27] MEDS: METHYLPREDNISOLONE 40 MG INJ IV SCH ×3 (09:00→20:48)
[2021-05-27] MEDS ORDERED: ASCORBIC ACID 500 MG TABLET ONE ×4 (10:29→20:46)
[2021-05-27] MEDS ORDERED: METHYLPREDNISOLONE 125 MG INJ ONE ×2 (10:29→13:32)
[2021-05-27] MEDS ORDERED: ASPIRIN EC 81 MG TAB PO ONE (10:29)
[2021-05-27] MEDS ORDERED: APIXABAN 5 MG TABLET ONE ×2 (10:29→20:46)
[2021-05-27] MEDS ORDERED: THIAMINE HCL 100 MG TABLET ONE ×2 (10:29→21:25)
[2021-05-27] MEDS ORDERED: ZINC SULFATE 220 MG CAP ONE (10:30)
[2021-05-27] MEDS ORDERED: FAMOTIDINE 20 MG TAB ONE ×2 (10:30→20:47)
[2021-05-27] MEDS ORDERED: VITAMIN D 1000 UNIT TAB ONE (10:30)
[2021-05-27] MEDS: CEFTRIAXONE/SWI 1gm 1 GM/10 ML SYR IV SCH (14:51)
[2021-05-27] MEDS ORDERED: CEFTRIAXONE/SWI 1gm 1 GM/10 ML SYR ONE (15:24)
[2021-05-27] MEDS ORDERED: ACETAMINOPHEN 500 MG TAB ONE (20:46)
[2021-05-27] MEDS ORDERED: METHYLPREDNISOLONE 40 MG INJ ONE (20:47)
[2021-05-28] MEDS ORDERED: LORAZEPAM 0.5 MG TABLET PO ONE (01:29)
[2021-05-28] MEDS ORDERED: LORAZEPAM 0.5 MG TABLET ONE (02:01)
[2021-05-28 03:20] LABS: Absolute Lymphocytes (CBC) 0.4 K/uL (0.7-4.9); Basophils % 0.2 % (0-1.3); Hematocrit 37.3 % (39.6-49.0); Lymphocytes % 1.6 % (15.3-44.8); MPV 8.6 fL (7.6-11.3); RBC Red Blood Cell Count 4.39 M/uL (4.33-5.43)
[2021-05-28 03:43] LABS: ALT/SGPT 64 U/L (12-78); AST/SGOT 49 U/L (15-37); Albumin 2.8 g/dL (3.4-5.0); Alkaline Phosphatase 48 U/L (45-117); BUN Blood Urea Nitrogen 35 mg/dL (7-18); Bicarbonate 30 mmol/L (21-32); Bilirubin Total 0.7 mg/dL (0.2-1.0); Ferritin 1505.1 ng/mL (26-388); Glucose Level 133 mg/dL (74-106); Magnesium 2.6 mg/dL (1.8-2.4); Potassium 4.8 mmol/L (3.5-5.1); Protein, Total 6.9 g/dL (6.4-8.2); Sodium Level 139 mmol/L (136-145)
[2021-05-28] MEDS ORDERED: ACETAMINOPHEN 500 MG TAB ONE (05:53)
--- NOTE | 2021-05-28 06:26 | P.PN ---
Subjective Date of Service: 05/28/21 Primary Care Provider: Dr. Burris Chief Complaint: COVID-19 pneumonia Subjective: Other (Patient reports improvement. Currently on 6 L per nasal cannula.) Physical Examination - Vital Signs Temperature: 97.5 F Blood Pressure: 159/65 Pulse: 78 Respirations: 25 Pulse Ox (%): 95 Assessment & Plan Discharge Plan: Home Plan to discharge in: Greater than 2 days Physician Review Additional Text: COVID: Positive, unvaccinated Initial chest x-ray: COMPARISON: Chest Single View dated 10/27/2017 FINDINGS: Patchy airspace disease bilaterally. This is moderate in severity. The heart size is within normal limits.No acute osseous abnormality. No significant pleural effusions or pneumothorax. IMPRESSION: Moderate patchy airspace disease bilaterally concerning for multifocal pneumonia, including Covid-19. CT chest: COMPARISON: No comparisons FINDINGS: Chest Wall: No suspicious thyroid nodules or pathologic lymphadenopathy. Lungs: Moderate bilateral airspace disease There is a 9 millimeter nodule in the right middle lobe. Pleura: No significant effusions or pneumothorax. Mediastinum/britney: No pathologic lymphadenopathy. Pulmonary arteries/Aorta: No filling defect identified. No aortic aneurysm. Enlarged main pulmonary artery. Heart: No significant pericardial effusion. Normal heart size. Upper abdomen: No acute abnormality. Bones: No acute abnormality. IMPRESSION: Negative for pulmonary embolism. Moderate bilateral airspace disease concerning for multifocal pneumonia, including Covid-19. 9 millimeter right middle lobe solid nodule. Recommend three-month follow-up chest CT. Follow-up chest x-ray 05/27/2021: COMPARISON: Chest Single View dated 05/25/2021; Chest Single View dated 10/27/2017; Chest For Pe Angio dated 05/25/2021 FINDINGS: Moderate multifocal airspace disease which is unchanged since 05/25/2021. Cardiomegaly.No acute osseous abnormality. No significant pleural effusions or pneumothorax. IMPRESSION: Moderate bilateral airspace disease concerning for multifocal pneumonia which is unchanged. Liver ultrasound: COMPARISON: <Comparisons> TECHNIQUE: Sonographic evaluation of the right upper quadrant was performed as a dedicated liver ultrasound study. FINDINGS: Assessment is limited by the patient's inability to adequately suspend respiration and limited mobility. Liver is 15 cm. No focal liver lesion is identifiable. No portal vein abnormality seen. Liver echogenicity is increased in a pattern typical for hepatic steatosis. No ascites was seen. Spleen is borderline enlarged at 13.5 cm. IMPRESSION: Fatty infiltration of a normal size liver. No focal liver lesions seen. Physical exam: General: Alert, In no apparent distress, Oriented x3 HEENT: Atraumatic, PERRLA, Mucous membr. moist/pink, EOMI, Sclerae nonicteric Neck: Supple Respiratory: Better air movement bilateral. Currently on 6 L per nasal cannula. Some wheezing noted Cardiovascular: Regular rate/rhythm, Normal S1 S2, No murmurs Gastrointestinal: Normal bowel sounds, Soft and benign, Non-distended, No tenderness Musculoskeletal: No clubbing, No swelling, No tenderness Integumentary: No rashes Neurological: Normal gait, Normal speech, Normal strength at 5/5 x4 extr, Normal tone, Sensation intact, Cranial nerves 3-12 intact, Normal affect Lymphatics: No axilla or inguinal lymphadenopathy Impression: Dyspnea secondary to bilateral Covid pneumonia with hypoxia Tobacco abuse suspect underlying COPD CT scan showing 9 mm right middle lobe solid nodule Elevated liver function with fatty liver Plan: Dyspnea secondary to bilateral Covid pneumonia with hypoxia: Slow improvement noted. CRP and ferritin improved. Continue IV steroid. Patient started on IV Rocephin yesterday due to leukocytosis. Continue to monitor the patient closely. Continue to monitor electrolytes. Case discussed with pulmonology. Encourage proning, ambulation and incentive spirometer. Will provide medication for cough. Continue to wean off oxygen with the help of respiratory. Maintain sats above 93%. Patient on DVT prophylaxisEliquis due to elevated D-dimer. CT scan unremarkable for pulmonary embolism. Continue to monitor and assess. Anticipate improvement over the next [address] scan showing 9 mm right middle lobe solid nodule: This can be followed up as an outpatient. Recommend repeat CT scan in 3 months with pulmonology. Elevated liver function with fatty liver: Continue to monitor liver function test. Patient with fatty liver Tobacco abuse suspect underlying COPD: Patient does not want nicotine patch at this time. Will start albuterol, Atrovent as needed. We will also provide Pulmicort. CODE STATUS: Full code DVT prophylaxis: Eliquis Advanced care [id number] minutes: Home at discharge Time Spent Managing Pts Care (In Minutes): 55
[2021-05-28] MEDS: THIAMINE HCL 100 MG TABLET PO SCH ×2 (09:00→20:41)
[2021-05-28] MEDS: FAMOTIDINE 20 MG TAB PO SCH ×2 (09:00→20:41)
[2021-05-28] MEDS: APIXABAN 5 MG TABLET PO SCH ×2 (09:00→20:42)
[2021-05-28] MEDS: METHYLPREDNISOLONE 40 MG INJ IV SCH ×3 (09:00→20:42)
[2021-05-28] MEDS: ASCORBIC ACID 500 MG TABLET PO SCH ×4 (09:00→20:41)
[2021-05-28] MEDS: VITAMIN D 1000 UNIT TAB PO SCH (09:00)
[2021-05-28] MEDS: CEFTRIAXONE/SWI 1gm 1 GM/10 ML SYR IV SCH (09:00)
[2021-05-28] MEDS: ZINC SULFATE 220 MG CAP PO SCH (09:00)
[2021-05-28] MEDS: ASPIRIN EC 81 MG TAB PO SCH (09:00)
[2021-05-28] MEDS ORDERED: ASCORBIC ACID 500 MG TABLET ONE (10:04)
[2021-05-28] MEDS ORDERED: ASPIRIN EC 81 MG TAB PO ONE (10:05)
[2021-05-28] MEDS ORDERED: ZINC SULFATE 220 MG CAP ONE (10:05)
[2021-05-28] MEDS ORDERED: THIAMINE HCL 100 MG TABLET ONE (10:05)
[2021-05-28] MEDS ORDERED: VITAMIN D 1000 UNIT TAB ONE (10:05)
[2021-05-28] MEDS ORDERED: APIXABAN 5 MG TABLET ONE (10:05)
[2021-05-28] MEDS ORDERED: FAMOTIDINE 20 MG TAB ONE (10:06)
[2021-05-28] MEDS ORDERED: METHYLPREDNISOLONE 40 MG INJ ONE (10:06)
[2021-05-28] MEDS ORDERED: CEFTRIAXONE/SWI 1gm 1 GM/10 ML SYR ONE (10:06)
[2021-05-28] MEDS ORDERED: ALBUTEROL 2.5 MG/3 ML NEB SOL NEB PRN (10:46)
[2021-05-28] MEDS ORDERED: IPRATROPIUM BROM 0.5MG/2.5ML NEB PRN (10:46)
[2021-05-28] MEDS ORDERED: HYDROCODONE/APAP 5/325 MG TAB PO PRN (10:50)
[2021-05-28] MEDS ORDERED: TRAMADOL HCL 50 MG TAB PO PRN (10:50)
[2021-05-28] MEDS: BUDESONIDE 0.25 MG/2 ML NEB NEB SCH (20:30)
[2021-05-28] MEDS: ACETAMINOPHEN 500 MG TAB PO PRN (20:45)
[2021-05-29 05:43] LABS: Absolute Lymphocytes (CBC) 0.6 K/uL (0.7-4.9); Basophils % 0.3 % (0-1.3); Hematocrit 36.5 % (39.6-49.0); Lymphocytes % 3.8 % (15.3-44.8); MPV 8.2 fL (7.6-11.3); RBC Red Blood Cell Count 4.28 M/uL (4.33-5.43)
[2021-05-29 06:03] LABS: ALT/SGPT 58 U/L (12-78); AST/SGOT 33 U/L (15-37); Albumin 2.7 g/dL (3.4-5.0); Alkaline Phosphatase 45 U/L (45-117); BUN Blood Urea Nitrogen 30 mg/dL (7-18); Bicarbonate 30 mmol/L (21-32); Bilirubin Total 0.7 mg/dL (0.2-1.0); Ferritin 1173.6 ng/mL (26-388); Glucose Level 118 mg/dL (74-106); Magnesium 2.5 mg/dL (1.8-2.4); Potassium 4.4 mmol/L (3.5-5.1); Protein, Total 6.6 g/dL (6.4-8.2); Sodium Level 139 mmol/L (136-145)
--- NOTE | 2021-05-29 06:15 | P.PN ---
Subjective Date of Service: 05/29/21 Primary Care Provider: Dr. Burris Chief Complaint: COVID-19 pneumonia Subjective: Other (Patient reports improvement. Currently on 12 L per nasal cannula) Physical Examination - Vital Signs Temperature: 97 F Blood Pressure: 149/79 Pulse: 67 Respirations: 16 Pulse Ox (%): 94 - Studies Microbiology Data (last 24 hrs): 05/25/21 14:30 Throat Culture & Sensitivity - Final Assessment & Plan Discharge Plan: LTAC Plan to discharge in: 48 Hours Physician Review Additional Text: COVID: Positive, unvaccinated Initial chest x-ray: COMPARISON: Chest Single View dated 10/27/2017 FINDINGS: Patchy airspace disease bilaterally. This is moderate in severity. The heart size is within normal limits.No acute osseous abnormality. No significant pleural effusions or pneumothorax. IMPRESSION: Moderate patchy airspace disease bilaterally concerning for multifocal pneumonia, including Covid-19. CT chest: COMPARISON: No comparisons FINDINGS: Chest Wall: No suspicious thyroid nodules or pathologic lymphadenopathy. Lungs: Moderate bilateral airspace disease There is a 9 millimeter nodule in the right middle lobe. Pleura: No significant effusions or pneumothorax. Mediastinum/britney: No pathologic lymphadenopathy. Pulmonary arteries/Aorta: No filling defect identified. No aortic aneurysm. Enlarged main pulmonary artery. Heart: No significant pericardial effusion. Normal heart size. Upper abdomen: No acute abnormality. Bones: No acute abnormality. IMPRESSION: Negative for pulmonary embolism. Moderate bilateral airspace disease concerning for multifocal pneumonia, including Covid-19. 9 millimeter right middle lobe solid nodule. Recommend three-month follow-up chest CT. Follow-up chest x-ray 05/27/2021: COMPARISON: Chest Single View dated 05/25/2021; Chest Single View dated 10/27/2017; Chest For Pe Angio dated 05/25/2021 FINDINGS: Moderate multifocal airspace disease which is unchanged since 05/25/2021. Cardiomegaly.No acute osseous abnormality. No significant pleural effusions or pneumothorax. IMPRESSION: Moderate bilateral airspace disease concerning for multifocal pneumonia which is unchanged. Liver ultrasound: COMPARISON: <Comparisons> TECHNIQUE: Sonographic evaluation of the right upper quadrant was performed as a dedicated liver ultrasound study. FINDINGS: Assessment is limited by the patient's inability to adequately suspend respiration and limited mobility. Liver is 15 cm. No focal liver lesion is identifiable. No portal vein abnormality seen. Liver echogenicity is increased in a pattern typical for hepatic steatosis. No ascites was seen. Spleen is borderline enlarged at 13.5 cm. IMPRESSION: Fatty infiltration of a normal size liver. No focal liver lesions seen. Physical exam: General: Alert, In no apparent distress, Oriented x3 HEENT: Atraumatic, PERRLA, Mucous membr. moist/pink, EOMI, Sclerae nonicteric Neck: Supple Respiratory: Better air movement bilateral. Currently on 6 L per nasal cannula. Some wheezing noted Cardiovascular: Regular rate/rhythm, Normal S1 S2, No murmurs Gastrointestinal: Normal bowel sounds, Soft and benign, Non-distended, No tenderness Musculoskeletal: No clubbing, No swelling, No tenderness Integumentary: No rashes Neurological: Normal gait, Normal speech, Normal strength at 5/5 x4 extr, Normal tone, Sensation intact, Cranial nerves 3-12 intact, Normal affect Lymphatics: No axilla or inguinal lymphadenopathy Impression: Dyspnea secondary to bilateral Covid pneumonia with hypoxia Tobacco abuse suspect underlying COPD CT scan showing 9 mm right middle lobe solid nodule Elevated liver function with fatty liver Plan: Dyspnea secondary to bilateral Covid pneumonia with hypoxia: Patient slowly improving. CRP and ferritin improved. Will decrease IV steroid. Patient started on IV Rocephin yesterday due to leukocytosis. This has improved. Continue to monitor electrolytes and CRP/ferritin. Pulmicort added yesterday as underlying COPD suspected. Albuterol and Atrovent also provided. Case discussed with pulmonology. Encourage proning, ambulation and incentive spirometer. Will provide medication for cough. Continue to wean off oxygen with the help of respiratory. Maintain sats above 93%. Patient on DVT prophylaxisEliquis due to elevated D-dimer. CT scan unremarkable for pulmonary embolism. Continue to monitor and assess. Discussed the possibility of sending patient to LTAC to continue therapy and rehab. Patient in agreement. Will have neonatal social worker address this in detail. Anticipate improvement over the next [address] scan showing 9 mm right middle lobe solid nodule: This can be followed up as an outpatient. Recommend repeat CT scan in 3 months with pulmonology. Elevated liver function with fatty liver: Continue to monitor liver function test. Patient with fatty liver Tobacco abuse suspect underlying COPD: Patient does not want nicotine patch at this time. Continue with Pulmicort, Atrovent and albuterol. CODE STATUS: Full code DVT prophylaxis: Nannette Advanced care minutes: Long-term acute care facility Time Spent Managing Pts Care (In Minutes): 55
[2021-05-29] MEDS: GUAIFENESIN/CODEINE 5ML UCUP PO PRN (09:00)
[2021-05-29] MEDS: ASPIRIN EC 81 MG TAB PO SCH (09:01)
[2021-05-29] MEDS: METHYLPREDNISOLONE 40 MG INJ IV SCH ×2 (09:01→21:23)
[2021-05-29] MEDS: ASCORBIC ACID 500 MG TABLET PO SCH ×4 (09:01→21:22)
[2021-05-29] MEDS: ZINC SULFATE 220 MG CAP PO SCH (09:01)
[2021-05-29] MEDS: THIAMINE HCL 100 MG TABLET PO SCH ×2 (09:01→21:22)
[2021-05-29] MEDS: VITAMIN D 1000 UNIT TAB PO SCH (09:01)
[2021-05-29] MEDS: FAMOTIDINE 20 MG TAB PO SCH ×2 (09:02→21:21)
[2021-05-29] MEDS: APIXABAN 5 MG TABLET PO SCH ×2 (09:02→21:22)
[2021-05-29] MEDS: CEFTRIAXONE/SWI 1gm 1 GM/10 ML SYR IV SCH (09:02)
[2021-05-29] MEDS: BUDESONIDE 0.25 MG/2 ML NEB NEB SCH ×2 (09:44→21:20)
[2021-05-29] MEDS: ACETAMINOPHEN 500 MG TAB PO PRN (12:23)
[2021-05-29] MEDS: ALPRAZOLAM 0.25 MG TABLET PO PRN ×2 (12:40→19:14)
[2021-05-30 05:33] LABS: Absolute Lymphocytes (CBC) 0.5 K/uL (0.7-4.9); Basophils % 0.1 % (0-1.3); Hematocrit 36.8 % (39.6-49.0); RBC Red Blood Cell Count 4.32 M/uL (4.33-5.43)
[2021-05-30 05:57] LABS: ALT/SGPT 61 U/L (12-78); AST/SGOT 30 U/L (15-37); Albumin 2.7 g/dL (3.4-5.0); Alkaline Phosphatase 43 U/L (45-117); BUN Blood Urea Nitrogen 28 mg/dL (7-18); Bicarbonate 30 mmol/L (21-32); Ferritin 1008.1 ng/mL (26-388); Glucose Level 116 mg/dL (74-106); Magnesium 2.4 mg/dL (1.8-2.4); Protein, Total 6.6 g/dL (6.4-8.2); Sodium Level 138 mmol/L (136-145)
--- NOTE | 2021-05-30 06:20 | P.PN ---
Subjective Date of Service: 05/30/21 Primary Care Provider: Dr. Burris Chief Complaint: COVID-19 pneumonia Subjective: Improving Physical Examination - Vital Signs Temperature: 97 F Blood Pressure: 150/82 Pulse: 84 Respirations: 18 Pulse Ox (%): 88 Assessment & Plan Discharge Plan: LTAC Plan to discharge in: 48 Hours Physician Review Additional Text: COVID: Positive, unvaccinated Initial chest x-ray: COMPARISON: Chest Single View dated 10/27/2017 FINDINGS: Patchy airspace disease bilaterally. This is moderate in severity. The heart size is within normal limits.No acute osseous abnormality. No significant pleural effusions or pneumothorax. IMPRESSION: Moderate patchy airspace disease bilaterally concerning for multifocal pneumonia, including Covid-19. CT chest: COMPARISON: No comparisons FINDINGS: Chest Wall: No suspicious thyroid nodules or pathologic lymphadenopathy. Lungs: Moderate bilateral airspace disease There is a 9 millimeter nodule in the right middle lobe. Pleura: No significant effusions or pneumothorax. Mediastinum/britney: No pathologic lymphadenopathy. Pulmonary arteries/Aorta: No filling defect identified. No aortic aneurysm. Enlarged main pulmonary artery. Heart: No significant pericardial effusion. Normal heart size. Upper abdomen: No acute abnormality. Bones: No acute abnormality. IMPRESSION: Negative for pulmonary embolism. Moderate bilateral airspace disease concerning for multifocal pneumonia, including Covid-19. 9 millimeter right middle lobe solid nodule. Recommend three-month follow-up chest CT. Follow-up chest x-ray 05/27/2021: COMPARISON: Chest Single View dated 05/25/2021; Chest Single View dated 10/27/2017; Chest For Pe Angio dated 05/25/2021 FINDINGS: Moderate multifocal airspace disease which is unchanged since 05/25/2021. Cardiomegaly.No acute osseous abnormality. No significant pleural effusions or pneumothorax. IMPRESSION: Moderate bilateral airspace disease concerning for multifocal pneumonia which is unchanged. Liver ultrasound: COMPARISON: <Comparisons> TECHNIQUE: Sonographic evaluation of the right upper quadrant was performed as a dedicated liver ultrasound study. FINDINGS: Assessment is limited by the patient's inability to adequately suspend respiration and limited mobility. Liver is 15 cm. No focal liver lesion is identifiable. No portal vein abnormality seen. Liver echogenicity is increased in a pattern typical for hepatic steatosis. No ascites was seen. Spleen is borderline enlarged at 13.5 cm. IMPRESSION: Fatty infiltration of a normal size liver. No focal liver lesions seen. Physical exam: General: Alert, In no apparent distress, Oriented x3 HEENT: Atraumatic, PERRLA, Mucous membr. moist/pink, EOMI, Sclerae nonicteric Neck: Supple Respiratory: Better air movement bilateral. Currently on 6 L per nasal cannula. Some wheezing noted Cardiovascular: Regular rate/rhythm, Normal S1 S2, No murmurs Gastrointestinal: Normal bowel sounds, Soft and benign, Non-distended, No tenderness Musculoskeletal: No clubbing, No swelling, No tenderness Integumentary: No rashes Neurological: Normal gait, Normal speech, Normal strength at 5/5 x4 extr, Normal tone, Sensation intact, Cranial nerves 3-12 intact, Normal affect Lymphatics: No axilla or inguinal lymphadenopathy Impression: Dyspnea secondary to bilateral Covid pneumonia with hypoxia Tobacco abuse suspect underlying COPD CT scan showing 9 mm right middle lobe solid nodule Elevated liver function with fatty liver Leukocytosis Plan: Dyspnea secondary to bilateral Covid pneumonia with hypoxia: Patient slowly improving. CRP and ferritin improved. Continue with IV steroid. Patient started on IV Rocephin 2 days ago due to leukocytosis. Stable, will monitor. Continue to monitor electrolytes and CRP/ferritin. Continue with Pulmicort as underlying COPD suspected. Albuterol and Atrovent also provided. Encourage proning, ambulation and incentive spirometer. Will provide medication for cough. Continue to wean off oxygen with the help of respiratory. Maintain sats above 93%. Patient on DVT prophylaxisEliquis due to elevated D-dimer. CT scan unremarkable for pulmonary embolism. Continue to monitor and assess. Continue to pursue LTAC. Patient in agreement. Will have social secretary address this in detail. CT scan showing 9 mm right middle lobe solid nodule: This can be followed up as an outpatient. Recommend repeat CT scan in 3 months with pulmonology. Elevated liver function with fatty liver: Continue to monitor liver function test. Patient with fatty liver Tobacco abuse suspect underlying COPD: Patient does not want nicotine patch at this time. Continue with Pulmicort, Atrovent and albuterol. Leukocytosis: Steroid has been decreased. Currently on rocephin. Continue with above plan of care. CODE STATUS: Full code DVT prophylaxis: Eliquis Advanced care [id number] minutes: Long-term acute care facility Time Spent Managing Pts Care (In Minutes): 55
[2021-05-30] MEDS: BUDESONIDE 0.25 MG/2 ML NEB NEB SCH ×2 (08:45→20:45)
[2021-05-30] MEDS: CEFTRIAXONE/SWI 1gm 1 GM/10 ML SYR IV SCH (08:58)
[2021-05-30] MEDS: ASPIRIN EC 81 MG TAB PO SCH (08:59)
[2021-05-30] MEDS: VITAMIN D 1000 UNIT TAB PO SCH (08:59)
[2021-05-30] MEDS: THIAMINE HCL 100 MG TABLET PO SCH ×2 (08:59→22:06)
[2021-05-30] MEDS: ZINC SULFATE 220 MG CAP PO SCH (08:59)
[2021-05-30] MEDS: FAMOTIDINE 20 MG TAB PO SCH ×2 (08:59→22:05)
[2021-05-30] MEDS: ASCORBIC ACID 500 MG TABLET PO SCH ×4 (08:59→22:05)
[2021-05-30] MEDS: APIXABAN 5 MG TABLET PO SCH ×2 (08:59→22:06)
[2021-05-30] MEDS: METHYLPREDNISOLONE 40 MG INJ IV SCH ×2 (09:00→22:05)
[2021-05-30] MEDS: GUAIFENESIN/CODEINE 5ML UCUP PO PRN (09:05)
[2021-05-30] MEDS: ALPRAZOLAM 0.25 MG TABLET PO PRN (14:52)
[2021-05-30] MEDS: ESZOPICLONE 1 MG TAB PO PRN (22:05)
[2021-05-31 05:05] LABS: Absolute Lymphocytes (CBC) 0.8 K/uL (0.7-4.9); Basophils % 0.2 % (0-1.3); Hematocrit 37.8 % (39.6-49.0); Lymphocytes % 3.9 % (15.3-44.8); MPV 8.1 fL (7.6-11.3); RBC Red Blood Cell Count 4.45 M/uL (4.33-5.43)
[2021-05-31 05:36] LABS: ALT/SGPT 80 U/L (12-78); AST/SGOT 37 U/L (15-37); Albumin 2.6 g/dL (3.4-5.0); Alkaline Phosphatase 40 U/L (45-117); BUN Blood Urea Nitrogen 24 mg/dL (7-18); Bicarbonate 28 mmol/L (21-32); Bilirubin Total 1.1 mg/dL (0.2-1.0); Glucose Level 113 mg/dL (74-106); Magnesium 2.3 mg/dL (1.8-2.4); Potassium 4.5 mmol/L (3.5-5.1); Protein, Total 6.5 g/dL (6.4-8.2); Sodium Level 138 mmol/L (136-145)
[2021-05-31 05:47] LABS: Toxic Granulation 1+
[2021-05-31 05:48] LABS: Blood Morphology Comment NOT SEEN (NOT SEEN); Platelet Estimate ADEQ
--- NOTE | 2021-05-31 06:20 | P.PN ---
Subjective Date of Service: 05/31/21 Primary Care Provider: Dr. Burris Chief Complaint: COVID-19 pneumonia Subjective: Improving Physical Examination - Vital Signs Temperature: 98.1 F Blood Pressure: 115/61 Pulse: 75 Respirations: 20 Pulse Ox (%): 93 - Studies Microbiology Data (last 24 hrs): 05/25/21 14:50 Blood - Blood Aerobic Blood Culture - Final No growth in 5 days. 05/25/21 14:50 Blood - Blood Anaerobic Blood Culture - Final No growth in 5 days. 05/25/21 14:30 Blood - Blood Aerobic Blood Culture - Final No growth in 5 days. 05/25/21 14:30 Blood - Blood Anaerobic Blood Culture - Final No growth in 5 days. Assessment & Plan Discharge Plan: LTAC Plan to discharge in: 48 Hours Physician Review Additional Text: COVID: Positive, unvaccinated Initial chest x-ray: COMPARISON: Chest Single View dated 10/27/2017 FINDINGS: Patchy airspace disease bilaterally. This is moderate in severity. The heart size is within normal limits.No acute osseous abnormality. No significant pleural effusions or pneumothorax. IMPRESSION: Moderate patchy airspace disease bilaterally concerning for multifocal pneumonia, including Covid-19. CT chest: COMPARISON: No comparisons FINDINGS: Chest Wall: No suspicious thyroid nodules or pathologic lymphadenopathy. Lungs: Moderate bilateral airspace disease There is a 9 millimeter nodule in the right middle lobe. Pleura: No significant effusions or pneumothorax. Mediastinum/britney: No pathologic lymphadenopathy. Pulmonary arteries/Aorta: No filling defect identified. No aortic aneurysm. Enlarged main pulmonary artery. Heart: No significant pericardial effusion. Normal heart size. Upper abdomen: No acute abnormality. Bones: No acute abnormality. IMPRESSION: Negative for pulmonary embolism. Moderate bilateral airspace disease concerning for multifocal pneumonia, including Covid-19. 9 millimeter right middle lobe solid nodule. Recommend three-month follow-up chest CT. Follow-up chest x-ray 05/27/2021: COMPARISON: Chest Single View dated 05/25/2021; Chest Single View dated 10/27/2017; Chest For Pe Angio dated 05/25/2021 FINDINGS: Moderate multifocal airspace disease which is unchanged since 05/25/2021. Cardiomegaly.No acute osseous abnormality. No significant pleural effusions or pneumothorax. IMPRESSION: Moderate bilateral airspace disease concerning for multifocal pneumonia which is unchanged. Liver ultrasound: COMPARISON: <Comparisons> TECHNIQUE: Sonographic evaluation of the right upper quadrant was performed as a dedicated liver ultrasound study. FINDINGS: Assessment is limited by the patient's inability to adequately suspend respiration and limited mobility. Liver is 15 cm. No focal liver lesion is identifiable. No portal vein abnormality seen. Liver echogenicity is increased in a pattern typical for hepatic steatosis. No ascites was seen. Spleen is borderline enlarged at 13.5 cm. IMPRESSION: Fatty infiltration of a normal size liver. No focal liver lesions seen. Physical exam: General: Alert, In no apparent distress, Oriented x3 HEENT: Atraumatic, PERRLA, Mucous membr. moist/pink, EOMI, Sclerae nonicteric Neck: Supple Respiratory: Better air movement bilateral. Down to 5 L Cardiovascular: Regular rate/rhythm, Normal S1 S2, No murmurs Gastrointestinal: Normal bowel sounds, Soft and benign, Non-distended, No tenderness Musculoskeletal: No clubbing, No swelling, No tenderness Integumentary: No rashes Neurological: Normal gait, Normal speech, Normal strength at 5/5 x4 extr, Normal tone, Sensation intact, Cranial nerves 3-12 intact, Normal affect Lymphatics: No axilla or inguinal lymphadenopathy Impression: Dyspnea secondary to bilateral Covid pneumonia with hypoxia Tobacco abuse suspect underlying COPD CT scan showing 9 mm right middle lobe solid nodule Elevated liver function with fatty liver Leukocytosis Plan: Dyspnea secondary to bilateral Covid pneumonia with hypoxia: Patient slowly improving. Patient down to 5 L per nasal cannula. Continue to monitor electrolytes and CRP/ferritin. Continue with Pulmicort as underlying COPD suspected. Albuterol and Atrovent also provided. Encourage proning, ambulation and incentive spirometer. Will provide medication for cough. Continue to wean off oxygen with the help of respiratory. Maintain sats above 93%. Patient on DVT prophylaxisEliquis due to elevated D-dimer. CT scan unremarkable for pulmonary embolism. Continue to monitor and assess. Continue to pursue LTAC. Patient in agreement. Will have social worker psychiatric address this in detail. CT scan showing 9 mm right middle lobe solid nodule: This can be followed up as an outpatient. Recommend repeat CT scan in 3 months with pulmonology. Elevated liver function with fatty liver: Continue to monitor liver function test. Patient with fatty liver Tobacco abuse suspect underlying COPD: Patient does not want nicotine patch at this time. Continue with Pulmicort, Atrovent and albuterol. Leukocytosis: Steroid has been decreased. Currently on rocephin. Continue with above plan of care. CODE STATUS: Full code DVT prophylaxis: Nannette Advanced care [email or web address] minutes: Long-term acute care facility Time Spent Managing Pts Care (In Minutes): 55
[2021-05-31] MEDS ORDERED: FLUCONAZOLE 100mg IVPB 100 MG/50 ML BAG IV SCH ×2 (07:00→08:00)
[2021-05-31] MEDS: BUDESONIDE 0.25 MG/2 ML NEB NEB SCH ×2 (08:00→20:25)
[2021-05-31] MEDS: APIXABAN 5 MG TABLET PO SCH ×2 (10:12→20:55)
[2021-05-31] MEDS: THIAMINE HCL 100 MG TABLET PO SCH ×2 (10:12→20:55)
[2021-05-31] MEDS: VITAMIN D 1000 UNIT TAB PO SCH (10:12)
[2021-05-31] MEDS: CEFTRIAXONE/SWI 1gm 1 GM/10 ML SYR IV SCH (10:12)
[2021-05-31] MEDS: ASPIRIN EC 81 MG TAB PO SCH (10:12)
[2021-05-31] MEDS: ASCORBIC ACID 500 MG TABLET PO SCH ×4 (10:12→20:55)
[2021-05-31] MEDS: ZINC SULFATE 220 MG CAP PO SCH (10:12)
[2021-05-31] MEDS: METHYLPREDNISOLONE 40 MG INJ IV SCH ×2 (10:13→20:55)
[2021-05-31] MEDS: FAMOTIDINE 20 MG TAB PO SCH ×2 (10:14→20:54)
[2021-06-01] MEDS: ESZOPICLONE 1 MG TAB PO PRN
[2021-06-01 05:38] LABS: Absolute Lymphocytes (CBC) 0.7 K/uL (0.7-4.9); Basophils % 0.3 % (0-1.3); Hematocrit 36.8 % (39.6-49.0); Lymphocytes % 3.9 % (15.3-44.8); MPV 7.9 fL (7.6-11.3); RBC Red Blood Cell Count 4.32 M/uL (4.33-5.43)
[2021-06-01 06:02] LABS: ALT/SGPT 64 U/L (12-78); AST/SGOT 19 U/L (15-37); Albumin 2.5 g/dL (3.4-5.0); Alkaline Phosphatase 37 U/L (45-117); BUN Blood Urea Nitrogen 26 mg/dL (7-18); Bicarbonate 29 mmol/L (21-32); Bilirubin Total 0.9 mg/dL (0.2-1.0); Ferritin 1115.5 ng/mL (26-388); Glucose Level 128 mg/dL (74-106); Magnesium 2.3 mg/dL (1.8-2.4); Potassium 4.3 mmol/L (3.5-5.1); Protein, Total 6.4 g/dL (6.4-8.2); Sodium Level 137 mmol/L (136-145)
--- NOTE | 2021-06-01 06:28 | P.PN ---
Subjective Date of Service: 06/01/21 Primary Care Provider: Dr. Burris Chief Complaint: COVID-19 pneumonia Subjective: Improving (Patient continues to improve. Patient ambulating with physical therapy. Currently on 3 L per nasal cannula) Physical Examination - Vital Signs Temperature: 97.5 F Blood Pressure: 148/79 Pulse: 74 Respirations: 20 Pulse Ox (%): 94 Assessment & Plan Discharge Plan: Home Physician Review Additional Text: COVID: Positive, unvaccinated Initial chest x-ray: COMPARISON: Chest Single View dated 10/27/2017 FINDINGS: Patchy airspace disease bilaterally. This is moderate in severity. The heart size is within normal limits.No acute osseous abnormality. No significant pleural effusions or pneumothorax. IMPRESSION: Moderate patchy airspace disease bilaterally concerning for multifocal pneumonia, including Covid-19. CT chest: COMPARISON: No comparisons FINDINGS: Chest Wall: No suspicious thyroid nodules or pathologic lymphadenopat hy. Lungs: Moderate bilateral airspace disease There is a 9 millimeter nodule in the right middle lobe. Pleura: No significant effusions or pneumothorax. Mediastinum/britney: No pathologic lymphadenopathy. Pulmonary arteries/Aorta: No filling defect identified. No aortic aneurysm. Enlarged main pulmonary artery. Heart: No significant pericardial effusion. Normal heart size. Upper abdomen: No acute abnormality. Bones: No acute abnormality. IMPRESSION: Negative for pulmonary embolism. Moderate bilateral airspace disease concerning for multifocal pneumonia, including Covid-19. 9 millimeter right middle lobe solid nodule. Recommend three-month follow-up chest CT. Follow-up chest x-ray 05/27/2021: COMPARISON: Chest Single View dated 05/25/2021; Chest Single View dated 2017; Chest For Pe Angio dated 05/25/2021 FINDINGS: Moderate multifocal airspace disease which is unchanged since 05/25/2021. Cardiomegaly.No acute osseous abnormality. No significant pleural effusions or pneumothorax. IMPRESSION: Moderate bilateral airspace disease concerning for multifocal pneumonia which is unchanged. Liver ultrasound: COMPARISON: <Comparisons> TECHNIQUE: Sonographic evaluation of the right upper quadrant was performed as a dedicated liver ultrasound study. FINDINGS: Assessment is limited by the patient's inability to adequately suspend respiration and limited mobility. Liver is 15 cm. No focal liver lesion is identifiable. No portal vein abnormality seen. Liver echogenicity is increased in a pattern typical for hepatic steatosis. No ascites was seen. Spleen is borderline enlarged at 13.5 cm. IMPRESSION: Fatty infiltration of a normal size liver. No focal liver lesions seen. Physical exam: General: Alert, In no apparent distress, Oriented x3 HEENT: Atraumatic, PERRLA, Mucous membr. moist/pink, EOMI, Sclerae nonicteric Neck: Supple Respiratory: Better air movement bilateral. Down to 3 L Cardiovascular: Regular rate/rhythm, Normal S1 S2, No murmurs Gastrointestinal: Normal bowel sounds, Soft and benign, Non-distended, No tenderness Musculoskeletal: No clubbing, No swelling, No tenderness Integumentary: No rashes Neurological: Normal gait, Normal speech, Normal strength at 5/5 x4 extr, Normal tone, Sensation intact, Cranial nerves 3-12 intact, Normal affect Lymphatics: No axilla or inguinal lymphadenopathy Impression: Dyspnea secondary to bilateral Covid pneumonia with hypoxia Tobacco abuse suspect underlying COPD CT scan showing 9 mm right middle lobe solid nodule Elevated liver function with fatty liver Leukocytosis Plan: Dyspnea secondary to bilateral Covid pneumonia with hypoxia: Patient has done well. Now down to 3 L. Physical therapy worked with patient. Physical therapy feels that the patient can be discharged home appropriately. No need to pursue LTAC at this time. We will plan for discharge. CT scan showing 9 mm right middle lobe solid nodule: This can be followed up as an outpatient. Recommend repeat CT scan in 3 months with pulmonology. Elevated liver function with fatty liver: Continue to monitor liver function test. Patient with fatty liver Tobacco abuse suspect underlying COPD: Patient does not want nicotine patch at this time. Continue with Pulmicort, Atrovent and albuterol. Leukocytosis: Steroid has been decreased. Currently on rocephin. Continue with above plan of care. CODE STATUS: Full code DVT prophylaxis: Eliquis Advanced care minutes: Home Time Spent Managing Pts Care (In Minutes): 55
--- NOTE | 2021-06-01 07:41 | RAD REPORT ---
EXAM DESCRIPTION: RAD - Chest Single View - 06/01/2021 5:15 am CLINICAL HISTORY: Follow-up Covidpneumonia COMPARISON: May 27 TECHNIQUE: AP portable chest image was obtained 06/01/2021 5:15 am . FINDINGS: Lung volumes are low. Moderate severity bilateral COVID-19 pneumonia findings are again no chela with no improvement or progression over this multi day interval. Trachea is midline. Heart and va sculature are normal. No measurable pleural effusion and no pneumothorax. No acute bony abnormality s een. No acute aortic findings suspected. IMPRESSION: Stable moderate severity bilateral COVID-19 pneumonia.
[2021-06-01] MEDS: CEFTRIAXONE/SWI 1gm 1 GM/10 ML SYR IV SCH (08:07)
[2021-06-01] MEDS: METHYLPREDNISOLONE 40 MG INJ IV SCH (08:08)
[2021-06-01] MEDS: FAMOTIDINE 20 MG TAB PO SCH (08:08)
[2021-06-01] MEDS: APIXABAN 5 MG TABLET PO SCH (08:08)
[2021-06-01] MEDS: ASCORBIC ACID 500 MG TABLET PO SCH ×2 (08:08→12:57)
[2021-06-01] MEDS: ASPIRIN EC 81 MG TAB PO SCH (08:08)
[2021-06-01] MEDS: VITAMIN D 1000 UNIT TAB PO SCH (08:08)
[2021-06-01] MEDS: ZINC SULFATE 220 MG CAP PO SCH (08:08)
[2021-06-01] MEDS: THIAMINE HCL 100 MG TABLET PO SCH (08:08)
[2021-06-01] MEDS: BUDESONIDE 0.25 MG/2 ML NEB NEB SCH (08:38)
[2021-06-01] MEDS ORDERED: FLUCONAZOLE 100 MG TAB PO SCH (09:00)
--- NOTE | 2021-06-01 10:53 | P.DS ---
Admission Date: 05/26/21 Discharge Date: 06/01/21 Primary Care Provider: Dr. Burris Disposition: ROUTINE DISCHARGE Discharge Condition: GOOD Reason for Admission: COVID-19 pneumonia Consultations: Pulmonary-Dr. Kenney Procedures: COVID: Positive, unvaccinated Initial chest x-ray: COMPARISON: Chest Single View dated 10/27/2017 FINDINGS: Patchy airspace disease bilaterally. This is moderate in severity. The heart size is within normal limits.No acute osseous abnormality. No significant pleural effusions or pneumothorax. IMPRESSION: Moderate patchy airspace disease bilaterally concerning for multifocal pneumonia, including Covid-19. CT chest: COMPARISON: No comparisons FINDINGS: Chest Wall: No suspicious thyroid nodules or pathologic lymphadenopathy. Lungs: Moderate bilateral airspace disease There is a 9 millimeter nodule in the right middle lobe. Pleura: No significant effusions or pneumothorax. Mediastinum/britney: No pathologic lymphadenopathy. Pulmonary arteries/Aorta: No filling defect identified. No aortic aneurysm. Enlarged main pulmonary artery. Heart: No significant pericardial effusion. Normal heart size. Upper abdomen: No acute abnormality. Bones: No acute abnormality. IMPRESSION: Negative for pulmonary embolism. Moderate bilateral airspace disease concerning for multifocal pneumonia, including Covid-19. 9 millimeter right middle lobe solid nodule. Recommend three-month follow-up chest CT. Follow-up chest x-ray 06/01/2021: COMPARISON: May 27 TECHNIQUE: AP portable chest image was obtained 06/01/2021 5:15 am . FINDINGS: Lung volumes are low. Moderate severity bilateral COVID-19 pneumonia findings are again noted with no improvement or progression over this multi day interval. Trachea is midline. Heart and vasculature are normal. No measurable pleural effusion and no pneumothorax. No acute bony abnormality seen. No acute aortic findings suspected. IMPRESSION: Stable moderate severity bilateral COVID-19 pneumonia. Liver ultrasound: COMPARISON: <Comparisons> TECHNIQUE: Sonographic evaluation of the right upper quadrant was performed as a dedicated liver ultrasound study. FINDINGS: Assessment is limited by the patient's inability to adequately suspend respiration and limited mobility. Liver is 15 cm. No focal liver lesion is identifiable. No portal vein abnormality seen. Liver echogenicity is increased in a pattern typical for hepatic steatosis. No ascites was seen. Spleen is borderline enlarged at 13.5 cm. IMPRESSION: Fatty infiltration of a normal size liver. No focal liver lesions seen. Medical problem list: Dyspnea secondary to bilateral Covid pneumonia with hypoxia Tobacco abuse suspect underlying COPD CT scan showing 9 mm right middle lobe solid nodule Elevated liver function with fatty liver Leukocytosis Brief History of Present Illness: 71-year-old gentleman who came to the hospital with shortness of breath. Patient was found have COVID-19 pneumonia. Patient was severely hypoxic. He is been diagnosed for over a week. He is unvaccinated. His oxygen level was 70% when EMS arrived and on oxygen he went up into the 90s. Currently he is on 5-6 L and satting 96%. Will try to get an weaned down. Patient was admitted for treatment. Hospital Course: Patient presented with dyspnea secondary to bilateral Covid pneumonia with hypoxia. Patient unvaccinated. Patient was admitted for treatment. Patient seen and evaluated by pulmonology. Patient with underlying history of tobacco abuse likely with underlying COPD. Patient received IV steroids and supplementation with improvement. At discharge patient without significant shortness of breath. Currently stable on 3 L per nasal cannula. Patient has worked with physical therapy. From a physical therapy standpoint patient able to be discharged home instead of going to inpatient rehab or LTAC facility. Patient desires to go home as well. At discharge patient will continue with home oxygen to maintain sats above 93%. Currently stable on 3 L. Pulmonology will help wean him off oxygen. At discharge patient will continue with prednisone 20 mg 1 pill twice daily for 7 days then 1 pill once daily for 7 days. The patient will continue with Diflucan 100 mg daily for the next 3 days. This was related to his leukocytosis. This can be followed up with pulmonology. At discharge the patient will continue with aspirin 81 mg daily. The patient will also be given Robitussin with codeine 5 mL 3 times a day as needed for cough. A limited supply will be provided. At discharge the patient will continue with vitamin supplementation including vitamin C 500 mg 1 pill 3 times a day, vitamin D 2000 units daily, thiamine 100 mg 1 pill twice daily, zinc 220 mg daily, and Pepcid 20 mg 1 pill twice daily. Recommend to continue CDC guidelines on isolation for at least 10 days. Patient will need to limit his activities. Patient will continue with proning, incentive spirometer use, handwashing, social distancing and facemask use. The patient will need to follow-up with pulmonology within 1 week to follow-up hospitalization. Pulmonology will help wean him off medication and oxygen. Recommend follow-up with PCP within 1 week to follow-up this hospitalization as well. Patient with history of tobacco abuse. Patient likely with underlying COPD. Patient was given medication during the course of his stay. Patient will continue with above recommendations. At discharge the patient will also continue with Symbicort 2 puffs twice daily and albuterol 2 puffs 3 times a day as needed for shortness of breath. Patient will continue with tobacco cessation. Continue with COPD education. Patient will follow up with pulmonology within 1 week to further address. Patient had elevated liver function. This has remained stable. Liver ultrasound shows fatty liver. Education on fatty liver provided. This can be further monitored by PCP. CT scan revealed 9 mm right middle lobe solid nodule. Recommend follow-up with pulmonology as an outpatient to further monitor and address. Recommend repeat CT scan in 3 months to monitor stability. Vital Signs/Physical Exam: Temp Pulse Resp BP Pulse Ox 97.5 F 74 20 148/79 H 94 06/01/21 10:52 06/01/21 10:52 06/01/21 10:52 06/01/21 10:52 06/01/21 10:52 General: Alert, In no apparent distress, Oriented x3, Cooperative HEENT: Atraumatic Neck: Supple Respiratory: Clear to auscultation bilaterally, Other (Currently on 3 L per nasal cannula) Cardiovascular: Normal pulses, Regular rate/rhythm Gastrointestinal: Normal bowel sounds Musculoskeletal: No erythema, No tenderness, No warmth Integumentary: No tenderness/swelling Neurological: Normal speech, Normal strength at 5/5 x4 extr, Normal tone Laboratory Data at Discharge: WBC 18.30 K/uL (4.3-10.9) H 06/01/21 05:20 Hgb 12.7 g/dL (13.6-17.9) L 06/01/21 05:20 Hct 36.8 % (39.6-49.0) L 06/01/21 05:20 Plt Count 293 K/uL (152-406) 06/01/21 05:20 PT 14.1 SECONDS (9.5-12.5) H 05/25/21 14:30 INR 1.22 05/25/21 14:30 APTT 26.9 SECONDS (24.3-36.9) 05/25/21 14:30 Sodium 137 mmol/L (136-145) 06/01/21 05:20 Potassium 4.3 mmol/L (3.5-5.1) 06/01/21 05:20 BUN 26 mg/dL (7-18) H 06/01/21 05:20 Creatinine 0.71 mg/dL (0.55-1.3) 06/01/21 05:20 Glucose 128 mg/dL (74-106) H 06/01/21 05:20 Magnesium 2.3 mg/dL (1.8-2.4) 06/01/21 05:20 Total Bilirubin 0.9 mg/dL (0.2-1.0) 06/01/21 05:20 AST 19 U/L (15-37) 06/01/21 05:20 ALT 64 U/L (12-78) 06/01/21 05:20 Alkaline Phosphatase 37 U/L (45-117) L 06/01/21 05:20 Triglycerides 83 mg/dL (<150) 05/26/21 04:29 Cholesterol 123 mg/dL (<200) 05/26/21 04:29 HDL Cholesterol 52 mg/dL (40-60) 05/26/21 04:29 Cholesterol/HDL Ratio 2.37 05/26/21 04:29 Lipase 116 U/L (73-393) 05/25/21 14:30 Home Medications: Eszopiclone [Lunesta*] 3 mg PO BEDTIME PRN 05/27/21 Albuterol Sulfate [Proair Hfa] 2 puff IH TID PRN #1 hfa.aer.ad 06/01/21 Ascorbic Acid [Vitamin C*] 500 mg PO TID #90 tablet 06/01/21 Aspirin [Aspirin EC 81 MG] 81 mg PO DAILY #30 tablet. 06/01/21 Budesonide/Formoterol Fumarate [Symbicort 160-4.5 Mcg Inhaler] 2 puff IH BID #1 hfa.aer.ad 06/01/21 Cholecalciferol (Vitamin D3) [Vitamin D 1000 Iu Tab*] 2,000 unit PO DAILY #60 tab 06/01/21 Famotidine [Pepcid*] 20 mg PO BID #60 tab 06/01/21 Fluconazole [Diflucan] 100 mg PO DAILY #3 tablet 06/01/21 Guaifen W/Codeine Syrup [ROBITUSSIN A-C Syrup*] 5 ml PO QID PRN #1 bottle 06/01/21 Thiamine HCl [Vitamin B-1*] 100 mg PO BID #60 tablet 06/01/21 Zinc Sulfate [Zinc Sulfate*] 220 mg PO DAILY #30 cap 06/01/21 predniSONE [Deltasone] 20 mg PO SEECOM #21 tab 06/01/21 New Medications: Aspirin [Aspirin EC 81 MG] 81 mg PO DAILY #30 tablet. Fluconazole [Diflucan] 100 mg PO DAILY #3 tablet Famotidine [Pepcid*] 20 mg PO BID #60 tab predniSONE [Deltasone] 20 mg PO SEECOM #21 tab Albuterol Sulfate [Proair Hfa] 2 puff IH TID PRN #1 hfa.aer.ad PRN Reason: Shortness Of Breath Guaifen W/Codeine Syrup [ROBITUSSIN A-C Syrup*] 5 ml PO QID PRN #1 bottle PRN Reason: Cough Budesonide/Formoterol Fumarate [Symbicort 160-4.5 Mcg Inhaler] 2 puff IH BID #1 hfa.aer.ad Thiamine HCl [Vitamin B-1*] 100 mg PO BID #60 tablet Ascorbic Acid [Vitamin C*] 500 mg PO TID #90 tablet Cholecalciferol (Vitamin D3) [Vitamin D 1000 Iu Tab*] 2,000 unit PO DAILY #60 tab Zinc Sulfate [Zinc Sulfate*] 220 mg PO DAILY #30 cap Physician Discharge Instructions: Patient presented with dyspnea secondary to bilateral Covid pneumonia with hypoxia. Patient unvaccinated. Patient was admitted for treatment. Patient seen and evaluated by pulmonology. Patient with underlying history of tobacco abuse likely with underlying COPD. Patient received IV steroids and supplementation with improvement. At discharge patient without significant shortness of breath. Currently stable on 3 L per nasal cannula. Patient has worked with physical therapy. From a physical therapy standpoint patient able to be discharged home instead of going to inpatient rehab or LTAC facility. Patient desires to go home as well. At discharge patient will continue with home oxygen to maintain sats above 93%. Currently stable on 3 L. Pulmonology will help wean him off oxygen. At discharge patient will continue with prednisone 20 mg 1 pill twice daily for 7 days then 1 pill once daily for 7 days. The patient will continue with Diflucan 100 mg daily for the next 3 days. This was related to his leukocytosis. This can be followed up with pul monology. At discharge the patient will continue with aspirin 81 mg daily. The patient will also be given Robitussin with codeine 5 mL 3 times a day as needed for cough. A limited supply will be provided. At discharge the patient will continue with vitamin supplementation including vitamin C 500 mg 1 pill 3 times a day, vitamin D 2000 units daily, thiamine 100 mg 1 pill twice daily, zinc 220 mg daily, and Pepcid 20 mg 1 pill twice daily. Recommend to continue CDC guidelines on isolation for at least 10 days. Patient will need to limit his activities. Patient will continue with proning, incentive spirometer use, handwashing, social distancing and facemask use. The patient will need to follow-up with pulmonology within 1 week to follow-up hospitalization. Pulmonology will help wean him off medication and oxygen. Recommend follow-up with PCP within 1 week to follow-up this hospitalization as well. Patient with history of tobacco abuse. Patient likely with underlying COPD. Chris hancock was given medication during the course of his stay. Patient will continue with above recommendations. At discharge the patient will also continue with Symbicort 2 puffs twice daily and albuterol 2 puffs 3 times a day as needed for shortness of breath. Patient will continue with tobacco cessation. Continue with COPD education. Patient will follow up with pulmonology within 1 week to further address. Patient had elevated liver function. This has remained stable. Liver ultrasound shows fatty liver. Education on fatty liver provided. This can be further monitored by PCP. CT scan revealed 9 mm right middle lobe solid nodule. Recommend follow-up with pulmonology as an outpatient to further monitor and address. Recommend repeat CT scan in 3 months to monitor stability. Diet: AHA Activity: Ad kristine Followup: [place] GREWAL,Renetta Ruelas DO [Primary Care Provider] - Time spent managing pt's care (in minutes): 55
[2021-06-01 11:30] VITALS: O2SAT 93
[2021-06-01 12:53] VITALS: BP 136/64; TEMP 96.9
== END 2021-06-01 15:30 | disposition home health service (06) | DRG 177 ==
LOC: ER 12:28 → UNDOADMIN 19:04 → ERHOLD 19:04 → 4TH 05-28 14:34
PROVIDERS: ADMIT Hospitalist; ATTEND Hospitalist
DX: U07.1 COVID-19 (principal); J12.82 Pneumonia due to coronavirus disease 2019; R09.02 Hypoxemia; J44.9 Chronic obstructive pulmonary disease, unspecified; R91.1 Solitary pulmonary nodule; R79.89 Other specified abnormal findings of blood chemistry; K76.0 Fatty (change of) liver, not elsewhere classified; D72.829 Elevated white blood cell count, unspecified; F17.210 Nicotine dependence, cigarettes, uncomplicated
CPT/HCPCS: 36415; 71045; 71275; 76705; 80048; 80053; 80061; 80076; 81003; 81015; 82728; 82947; 83605; 83690; 83735; 84145; 84484; 85025; 85379; 85610; 85730; 86140; 87040; 87070; 87081; 87086; 87088; 87804; 93005; 94010; 96374; 96375; 97116; 97161; 99285; J0460; J0696; J1100; J1450; J2920; J2930; Q9967

== ENCOUNTER 2024-08-01 18:50 | Emergency (ER) | payer OTHER ==
--- OUTSIDE RECORDS SUMMARY | 2024-08-01 18:53 | XMS REPORT | Continuity of Care Document ---
Author Name Unknown Address [address] [facility] [address] [place] [address] [facility] thconnect Address [address] [facility] [address] [place] [address] Care Team Providers Care Health Outreach Worker Name Role Phone Renetta Burris Primary Care Physician [phone] Michael Kulkarni MD Attending Clinician [phone] Unknown, Attending Attending Clinician MICHAEL Schaefer Attending Clinician Unavailable JULIA CRUZ Attending Clinician JULIA Seaman Attending Clinician Liz Cruz MD, Julia Gama Attending Clinician [phone] Randall Maldonado Attending Clinician [phone] JULIA CRUZ Admitting Clinician Liz cortés Payers Payer Name Policy Type Policy Number Effective Date Expirati on Date Source [employer] [id number] 2019 00:00:00 Problems Condition Name Condition Details Condition Category Status Onset Date Resolution Date Last Treatment Date Treating Clinician Comments Source No known active problems No known active problems Disease [facility] Allergies, Adverse Reactions, Alerts Allergy Name Allergy Type Status Severity Reaction(s) Onset Date Inactive Date Treating Clinician Comments Source NO KNOWN ALLERGIE S Drug Class Active [facility] Social History Social Habit Start Date Stop Date Quantity Comments Source Exposure to SARS-CoV-2 (event) Not sure [facility] Sexual orientation [facility] Sex assigned at 1950 00:00:00 1950 00:00:00 [facility] Smoking Status Start Date Stop Date Source Tobacco smoking consumption unknown [facility] Medications Ordered Medication Name Filled Medication Name Start Date Stop Date Current Medication? Ordering Clinician Indication Dosage Frequency Signature (SIG) Comments Components Source levoFLOXaci n 750 mg tablet 2023-10 00:00: 00 08-09 04:59 :00 Yes [id number] 750mg Take 1 tablet by mouth every 24 (twenty-fo ur) hours for 7 days. [facility] tamsulosin (FLOMAX) capsule 0.4 mg 2023-10 16:45: 00 07-26 16:06 :00 No .4mg 0.4 mg, Oral, ONCE, 1 dose, On Fri07/26/24 at 1145, [facility] ketorolac (TORADOL) injection 15 mg 2023-10 14:30: 00 07-26 13:50 :00 No 15mg 15 mg, Slow IV Push, ONCE, 1 dose, On Fri07/26/24 at 0930, [facility] ondansetron (ZOFRAN (PF)) injection 8 mg 2023-10 14:00: 00 07-26 13:50 :00 No 8mg 8 mg, Slow IV Push, ONCE, 1 dose, On Fri07/26/24 at 0900, [facility] morpHINE (4 mg/mL) injection 4 mg 2023-10 14:00: 00 07-26 13:51 :00 No 4mg 4 mg, Slow IV Push, ONCE, 1 dose, On Fri07/26/24 at 0900, STAT [facility] tamsulosin 0.4 mg 24 hr capsule 2023-10 00:00: 00 Yes [id number] .4mg Take 1 capsule by mouth at bedtime. [facility] ondansetron 4 mg tablet 2023-10 00:00: 00 Yes [id number] 1 or 2 tablets every 8 hours as needed for nausea [facility] HYDROcodone -acetaminop hen 5-325 mg tablet 2023-10 00:00: 00 08-03 04:59 :00 Yes [id number] 1{tbl} Take 1 tablet by mouth every 4 (four) hours as needed (pain) for up to 7 days. Indication s: acute pain [facility] No known medications No Un ozzy [facility] No known medications No Un ozzy [facility] Immunizations Ordered Immunization Name Filled Immunization Name Date Status Comments Source Td 2021-06-09 00:00:00 Completed [facility] TD, NOS 2021-06-09 00:00:00 Completed [facility] Vital Signs Vital Name Observation Time Observation Value Comments S ource Systolic blood pressure 2024-08-01 19:08:00 165 mm[Hg] [facility] Diastolic blood pressure 2024-08-01 19:08:00 78 mm[Hg] [facility] Heart rate 2024-08-01 19:08:00 82 /min [facility] Body temperature 2024-08-01 19:08:00 36.72 Daisy [facility] Respiratory rate 2024-08-01 19:08:00 18 /min [facility] Body height 2024-08-01 19:08:00 188 cm [facility] Body weight 2024-08-01 19:08:00 90.975 kg [facility] BMI 2024-08-01 19:08:00 25.75 kg/m2 [facility] Oxygen saturation in Arterial blood by Pulse oximetry 2024-08-01 19:08:00 97 /min [facility] Systolic blood pressure 2024-07-26 13:20:00 152 mm[Hg] [facility] Diastolic blood pressure 2024-07-26 13:20:00 87 mm[Hg] [facility] Heart rate 2024-07-26 13:20:00 89 /min [facility] Body temperature 2024-07-26 13:20:00 36.72 Daisy [facility] Respiratory rate 2024-07-26 13:20:00 20 /min [facility] Body height 2024-07-26 13:20:00 188 cm [facility] Body weight 2024-07-26 13:20:00 90.719 kg [facility] BMI 2024-07-26 13:20:00 25.68 kg/m2 [facility] Oxygen saturation in Arterial blood by Pulse oximetry 2024-07-26 13:20:00 97 /min [facility] Systolic blood pressure 2021-06-09 19:59:28 129 mm[Hg] [facility] Diastolic blood pressure 2021-06-09 19:59:28 71 mm[Hg] [facility] Heart rate 2021-06-09 19:59:28 90 /min [facility] Respiratory rate 2021-06-09 19:59:28 16 /min [facility] Oxygen saturation in Arterial blood by Pulse oximetry 2021-06-09 19:59:28 100 /min [facility] Body temperature 2021-06-09 17:30:00 36.78 Daisy [facility] Body weight 2021-06-09 17:30:00 86.183 kg [facility] Procedures Procedure Date / Time Performed Performing Clinicia n Source POCT URINALYSIS 2024-08-01 00:00:[address] [facility] CT ABDOMEN PELVIS WO CONTRAST 2024-07-26 15:04:49 Julia Cruz [facility] LIPASE 2024-07-26 13:27:[address] [facility] COMP. METABOLIC PANEL ([id number]) 2024-07-26 13:27:00 Julia Cruz [facility] CBC WITH DIFF 2024-07-26 13:27:00 [facility]-26 13:27:[address] [facility] ED LACERATION REPAIR 2021-06-09 20:20:00 Veronica Nascimento [facility] CT MAXILLOFACIAL/MANDIBLE WO CONTRAST 2021-06-09 18:26:08 Randall Nascimento [facility] CT HEAD WO CONTRAST 2021-06-09 18:26:08 Randall Nascimento [facility] NOTICE OF PRIVACY PRACTICES 2021-06-09 17:21:23 Doctor Unassigned, [place] [facility] CONSENT/REFUSAL FOR DIAGNOSIS AND TREATMENT 2021-06-09 17:20:17 Doctor Unassigned, [place] [facility] Plan of Care Planned Activity Planned Date Details Comments Source Encounters Start Date/Time End Date/Time Encounter Type Admission Type Attending [facility] Care Facility Care Department Encounter ID Source 2024-08-01 14:00:00 2024-08-01 14:37:07 Urgent Care Michael Kulkarni Unknown, Attending [facility] [id number] [facility] 2024-08-01 14:00:00 2024-08-01 14:37:07 Outpatient R [facility] [id number] [facility] 2024-07-26 08:22:00 2024-07-26 11:26:00 Emergency X JULIA CRUZ [facility] ERT [id number] [facility] 2024-07-26 08:22:00 2024-07-26 11:26:00 Emergency Julia Cruz [facility] [id number] [facility] 2021-06-09 12:32:00 2021-06-09 15:57:00 Emergency Randall Nascimento [facility] [id number] [facility] 2021-06-09 12:22:00 2021-06-09 12:22:00 Emergency X [facility] ERT [id number] [facility] Results Test Description Test Time Test Comments Results Result Co mments Source [facility] [id number] 16:04:52EXAM: CT ABDOMEN PELVIS WO CONTRAST HISTORY: 74 years old Male with left flank pain of less than a dayduration. Flank pain, kidney stone suspected acute onset left flank pain COMPARISON: None available TECHNIQUE AND FINDINGS: Contiguous axial imaging from the level of the lungbases through the pubic symphysis was performed after administration ofintravenous contrast. Coronal and sagittal reconstructions were obtained. Auto mA and/or iterative reconstruction were used to reduce radiation dose. FINDINGS: LOWER THORAX: The lungs bases are clear. No cardiomegaly. LIVER: No focal hepatic lesions. ?Normal contour. GALLBLADDER AND BILIARY TREE: No biliary ductal dilation. ?No gallbladderwall thickening. SPLEEN: No splenomegaly. No focal lesions identified. PANCREAS: No ductal dilation or masses identified ADRENAL GLANDS: A 1.8 cm hypodense left adrenal nodule with density ofapproximately 7 HU compatible with adenoma. Normal right adrenal gland. KIDNEYS: A 4 mm distal left ureteric stone noted just proximal to the UVJwith administration moderate left hydroureteronephrosis. Left kidney isrelatively enlarged when diffuse perinephric stranding is noted. No massesare noted in this limited study. The right kidney is unremarkable. PERITONEUM AND RETROPERITONEUM: No free air or fluid. LYMPH NODES: No lymphadenopathy. GI TRACT: No dilation or wall thickening. Appendix is normal. PELVIS/BLADDER: The urinary bladder is partially distended. Mildcircumferential urinary bladder wall thickening is noted. The prostate ismoderately enlarged. The right testis is not visualized in view. The lefttestis is normal. A small fat-containing right inguinal hernia is noted.Multiple obstructive phleboliths are present. A few round calcifications inthe pelvis may represent sequela of chronic omental infarct (series 2,image 106, 110) VESSELS: Mild atherosclerotic calcification of the abdominal aorta isnoted. BONES AND SOFT TISSUES: Multilevel degenerative change of the lumbar spinethe form of disc space narrowing, vacuum disc phenomenon, Schmorl's nodesand facet arthrosis. Grade 1 anterolisthesis of L4 over L5. No suspiciouslytic or sclerotic bony lesions.[facility]. METABOLIC PANEL ([id number])2024-07-26 14:18:39* Test Item Value Reference Range Interpretation Comme nts NA (test code = 1548211470) 139 mmol/L 135-145 K (test code = 1730738278) 4.2 mmol/L 3.5-5.0 CL (test code = 0217436808) 103 mmol/L 98-108 CO2 TOTAL (test code = 1127697249) 30 mmol/L 23-31 AGAP (test code = 5550786283) 6 2-16 BUN (test code = 7098965550) 23 mg/dL 7-23 GLUCOSE (test code = 5456967633) 125 mg/dL 70-110 H CREATININE (test code = 2160-0) 1.18 mg/dL 0.60-1.25 TOTAL BILI (test code = 0868906155) 0.9 mg/dL 0.1-1.1 CALCIUM (test code = 9384541865) 9.4 mg/dL 8.6-10.6 T PROTEIN (test code = 4558139948) 8.4 g/dL 6.3-8.2 H ALBUMIN (test code = 3196334776) 4.7 g/dL 3.5-5.0 ALK PHOS (test code = 2974351267) 46 U/L 34-122 ALTv (test code = 1742-6) 21 U/L 5-50 AST(SGOT) (test code = 3692380101) 39 U/L 13-40 eGFR (test code = 80238-6) 65.6 mL/min/1.73m2 CKD-EPI eGFR (2020). Assuming creatinine has been stable day-to-day for at least three months, the eGFR indicates Category G2 (60 - 89 mL/min/1.73 m2) Lab Interpretation (test code = 35860-3) [facility] 14:17:59* Test Item Value Reference Range Interpretation Comme nts LIPASE (test code = 2466128299) 187 U/L 0-220 Lab Interpretation (test cod e = 72754-5) Normal [facility] [id number] 14:01:39* Test Item Value Reference Range Interpretation Comme nts WBC (test code = 6690-2) 8.25 4.20-10.70 RBC (test code = 789-8) 4.50 4.26-5.52 HGB (test code = 718-7) 12.9 g/dL 12.2-16.4 HCT (test code = 4544-3) 40.3 % 38.4-49.3 MCV (test code = 787-2) 89.6 fL 81.7-95.6 MCH (test code = 785-6) 28.7 pg 26.1-32.7 MCHC (test code = 786-4) 32.0 g/dL 31.2-35.0 RDW-SD (test code = 04919-5) 45.4 fL 38.5-51.6 RDW-CV (test code = 788-0) 13.8 % 12.1-15.4 PLT (test code = 777-3) 187 150-328 MPV (test code = 73303-7) 11.7 fL 9.8-13.0 NRBC/100 WBC (test code = 9452322061) 0.0 0.0-10.0 NRBC x10^3 (test code = 5878422607) See_Comment [Automated messa ge] The system which generated this result transmitted reference range: 10*3/?L. The reference range was not used to interpret this result as normal/abnormal. GRAN MAT (NEUT) % (test code = 770-8) 63.4 % IMM GRAN % (test code = 2423169991) 0.50 % LYMPH % (test code = 736-9) 23.9 % MONO % (test code = 5905-5) 12.0 % EOS % (test code = 713-8) 0.1 % BASO % (test code = 706-2) 0.1 % GRAN MAT x10^3(ANC) (test code = 5735638511) 5.23 10*3/uL 1.99-6.95 IMM GRAN x10^3 (test code = 1386042449) 0.04 10*3/uL 0.00-0.06 LYMPH x10^3 (test code = 731-0) 1.97 10*3/uL 1.09-3.23 MONO x10^3 (test code = 742-7) 0.99 10*3/uL 0.36-1.02 EOS x10^3 (test code = 711-2) 0.06-0.53 L BASO x10^3 (test code = 704-7) 0.01-0.09 Lab Interpretation (test code = 36464-1) [facility] [id number] 18:37:11No acute intracranial abnormality Large right supraorbital laceration without associated acute craniofacialfracture. 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 CT HEAD WO CONTRAST, CT MAXILLOFACIAL/MANDIBLE WO CONTRAST HISTORY: Male 71 years Head trauma, minor (Age >= 65y) COMPARISON: None TECHNIQUE: RoutineCT head and CT maxillofacial/mandible were obtainedwithout IV contrast FINDINGS: CT head: The ventricles and cerebral sulci are normal in caliber and configuration.No hydrocephalus, midline shift or pathological extra-axial fluidcollection is present. The basal cisterns are unremarkable. No acute in tracranial hemorrhage or mass effect is present. No significantparenchymal attenuation abnormality is present. The calvarium and skull base are unremarkable. A large right supraorbital laceration andsurrounding soft tissue hematomais noted. Postsurgical changes of right orbital of evisceration with orbital implantare noted. Relatively well defined density in the floor of the right orbitappears to be postsurgical in nature. Screw hardware is also noted. No acute craniofacial fracture is present. The left globe and remaining intraorbital structures are unremarkable. The mastoid air cells and paranasal air sinuses are essentially clear witha small retention cyst in the left sphenoid sinus. Numerous scattered, small dermal calcifications are noted, most pronouncedin the premental region [facility], Radiant Results Inft User - 06/09/2021 1:[address] HEAD WO CONTRAST, CT MAXILLOFACIAL/MANDIBLE WO CONTRASTHISTORY: Male 71 years Head tr auma, minor (Age >= 65y) COMPARISON: NoneTECHNIQUE: Routine CT head and CT maxillofacial/mandible were obtainedwithout IV contrastFINDINGS:CT head:The ventricles and cerebral sulci are normal in caliber and configuration.No hydrocephalus, midline shift or pathological extra-axial fluidcollectionis present. The basal cisterns are unremarkable.No acute intracranial hemorrhage or mass effect is present. No significantparenchymal attenuation abnormality is present.The calvarium and skull base are unremarkable.A large right supraorbital laceration and surrounding soft tissue hematomais noted.Postsurgical changes of right orbital of evisceration with orbital implantare noted. Relatively well d efined density in the floor of the right orbitappears to be postsurgical in nature. 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 CT HEAD WO CONTRAST, CT MAXILLOFACIAL/MANDIBLE WO CONTRAST HISTORY: Male 71 years Head trauma, minor (Age >= 65y) COMPARISON: None TECHNIQUE: RoutineCT head and CT maxillofacial/mandible were obtainedwithout IV contrast FINDINGS: CT head: The ventricles and cerebral sulci are normal in caliber and configuration.No hydrocephalus, midline shift or pathological extra-axial fluidcollection is present. The basal cisterns are unremarkable. No acute intracranial hemorrhage or mass effect is present. No significantparenchymal attenuation abnormality is present. The calvarium and skull base are unremarkable. A large right supraorbital laceration andsurrounding soft tissue hematomais noted. Postsurgical changes of right orbital of evisceration with orbital implantare noted. Relatively well defined density in the floor of the right orbitappears to be postsurgical in nature. Screw hardware is also noted. No acute craniofacial fracture is present. The left globe and remaining intraorbital structures are unremarkable. The mastoid air cells and paranasal air sinuses are essentially clear witha small retention cyst in the left sphenoid sinus. Numerous scattered, small dermal calcifications are noted, most pronouncedin the premental region [facility], Radiant Results Inft User - 06/09/2021 1:[address] HEAD WO CONTRAST, CT MAXILLOFACIAL/MANDIBLE WO CONTRASTHISTORY: Male 71 years Head trauma, minor (Age >= 65y) COMPARISON: NoneTECHNIQUE: Routine CT head and CT maxillofacial/mandible were obtainedwithout IV contrastFINDINGS:CT head:The ventricles and cerebral sulci are normal in caliber and configuration.No hydrocephalus, midline shift or pathological extra-axial fluidcollectionis present. The basal cisterns are unremarkable.No acute intracranial hemorrhage or mass effect is present. No significantparenchymal attenuation abnormality is present.The calvarium and skull base are unremarkable.A large right supraorbital laceration and surrounding soft tissue hematomais noted.Postsurgical changes of right orbital of evisceration with orbital implantare noted. Relatively well defined density in the floor of the right orbitappears to be postsurgical in nature. 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 [facility] [id number] 18:37:11No acute intracranial abnormality Large right supraorbital laceration without associated acute craniofacialfracture. 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 CT HEAD WO CONTRAST, CT MAXILLOFACIAL/MANDIBLE WO CONTRAST HISTORY: Male 71 years Head trauma, minor (Age >= 65y) COMPARISON: None TECHNIQUE: RoutineCT head and CT maxillofacial/mandible were obtainedwithout IV contrast FINDINGS: CT head: The ventricles and cerebral sulci are normal in caliber and configuration.No hydrocephalus, midline shift or pathological extra-axial fluidcollection is present. The basal cisterns are unremarkable. No acute in tracranial hemorrhage or mass effect is present. No significantparenchymal attenuation abnormality is present. The calvarium and skull base are unremarkable. A large right supraorbital laceration andsurrounding soft tissue hematomais noted. Postsurgical changes of right orbital of evisceration with orbital implantare noted. Relatively well defined density in the floor of the right orbitappears to be postsurgical in nature. Screw hardware is also noted. No acute craniofacial fracture is present. The left globe and remaining intraorbital structures are unremarkable. The mastoid air cells and paranasal air sinuses are essentially clear witha small retention cyst in the left sphenoid sinus. Numerous scattered, small dermal calcifications are noted, most pronouncedin the premental region [facility], Radiant Results Inft User - 06/09/2021 1:[address] HEAD WO CONTRAST, CT MAXILLOFACIAL/MANDIBLE WO CONTRASTHISTORY: Male 71 years Head tr auma, minor (Age >= 65y) COMPARISON: NoneTECHNIQUE: Routine CT head and CT maxillofacial/mandible were obtainedwithout IV contrastFINDINGS:CT head:The ventricles and cerebral sulci are normal in caliber and configuration.No hydrocephalus, midline shift or pathological extra-axial fluidcollectionis present. The basal cisterns are unremarkable.No acute intracranial hemorrhage or mass effect is present. No significantparenchymal attenuation abnormality is present.The calvarium and skull base are unremarkable.A large right supraorbital laceration and surrounding soft tissue hematomais noted.Postsurgical changes of right orbital of evisceration with orbital implantare noted. Relatively well d efined density in the floor of the right orbitappears to be postsurgical in nature. 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 CT HEAD WO CONTRAST, CT MAXILLOFACIAL/MANDIBLE WO CONTRAST HISTORY: Male 71 years Head trauma, minor (Age >= 65y) COMPARISON: None TECHNIQUE: RoutineCT head and CT maxillofacial/mandible were obtainedwithout IV contrast FINDINGS: CT head: The ventricles and cerebral sulci are normal in caliber and configuration.No hydrocephalus, midline shift or pathological extra-axial fluidcollection is present. The basal cisterns are unremarkable. No acute intracranial hemorrhage or mass effect is present. No significantparenchymal attenuation abnormality is present. The calvarium and skull base are unremarkable. A large right supraorbital laceration andsurrounding soft tissue hematomais noted. Postsurgical changes of right orbital of evisceration with orbital implantare noted. Relatively well defined density in the floor of the right orbitappears to be postsurgical in nature. Screw hardware is also noted. No acute craniofacial fracture is present. The left globe and remaining intraorbital structures are unremarkable. The mastoid air cells and paranasal air sinuses are essentially clear witha small retention cyst in the left sphenoid sinus. Numerous scattered, small dermal calcifications are noted, most pronouncedin the premental region [facility], Radiant Results Inft User - 06/09/2021 1:[address] HEAD WO CONTRAST, CT MAXILLOFACIAL/MANDIBLE WO CONTRASTHISTORY: Male 71 years Head trauma, minor (Age >= 65y) COMPARISON: NoneTECHNIQUE: Routine CT head and CT maxillofacial/mandible were obtainedwithout IV contrastFINDINGS:CT head:The ventricles and cerebral sulci are normal in caliber and configuration.No hydrocephalus, midline shift or pathological extra-axial fluidcollectionis present. The basal cisterns are unremarkable.No acute intracranial hemorrhage or mass effect is present. No significantparenchymal attenuation abnormality is present.The calvarium and skull base are unremarkable.A large right supraorbital laceration and surrounding soft tissue hematomais noted.Postsurgical changes of right orbital of evisceration with orbital implantare noted. Relatively well defined density in the floor of the right orbitappears to be postsurgical in nature. 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 [facility] Notes Date/Time Note Provider Source 2024-07-26 11:25:17 Pt given printed and verbal discharge instructions regarding Ureteral stone, encouraged hydration, Prescriptions provided Discussed ibuprofen and to take with food to avoid GI distress. Discussed tramadol/phenergan/Tylenol # 3 side affects and to avoid driving/operating machinery/or engaging in activities requiring alertness while taking. Pt verbalized understanding of instructions, pt awake alert oriented, resp reg unlabored, skin w/d, color appropriate for race, moves all ext well,pt encouraged to follow up with pcp and or specialist Advised to seek medical attention for new/prolonged/worsening of symptoms. No adverse reaction to meds given in ER noted upon discharge PIV d'cd, dressing to site, catheter in tact. Awake, alert oriented, resp reg unlabored, skin w/d, pt leaving amb with steady gait, in no apparent distress, Melly Fuentes RN [facility] 2024-07-26 08:19:34 Patient reports left flank pain that started last night and came on worse today. No dysuria or blood in urine. Had n/v this morning. No hx kidney stones. Had advil and tylenol this morning. Danilo Ibrahim RN [facility] 2024-07-26 08:15:00 [facility] Emergency Department Note Patient Name: Antonino Hernandez Date of : 1950 74 year old male Treatment Room: Room/bed info not found Primary Care Physician: Renetta Burris Patient Escorted by: Family [5] Mode of Arrival: Personal means [1] EMS Treatment Prior to ED Arrival: PRODUCTION DISPATCHER treatment: None Travel and Exposure Screening: Symptoms Does patient have any of these symptoms?: (not recorded) Exposure Screening Has patient had contact with someone with a communicable disease in the last month?: (not recorded) Diseases exposed to:: (not recorded) Is Patient ?: (not recorded) Exposure Date: (not recorded) Chief Complaint: Chief Complaint Patient presents with Flank Pain left History of Present Illness: Acute onset overnight with left flan pain. No radiation to groin or lower extremity . Wax/wane intensity. No definitive aggravating or relieving factors. No fever. (+) nausea with emesis this AM. No diarrhea. No black/bloody stools. No dysuria, frequency, hematuria. Denies recent injury, fall, awkward positioning. No bowel/bladder incontinence. No lower extremity paresthesia or motor deficits. History provided by: Patient and spouse Past Medical History/Immunizations: History reviewed. No pertinent past medical history. Tetanus received in last 5 years: No Allergies: No Known Allergies Past Social History: Substance & Sexual Activity No substance use or sexual activity history on file. Past Surgical History: Past Surgical History: Procedure Laterality Date UMBILICAL HERNIORRHAPHY Review of Systems: Review of Systems Constitutional: Negative. HENT: Negative. Eyes: Negative. Respiratory: Negative. Gastrointestinal: Positive for nausea and vomiting. Negative for abdominal pain and diarrhea. Genitourinary: Positive for flank pain. Negative for dysuria, frequency and hematuria. Musculoskeletal: Positive for back pain. Skin: Negative. Negative for rash. Neurological: Negative. Psychiatric/Behavioral: Negative. Physical Exam: ED Triage Vitals [07/26/24 0820] Weight 90.7 kg (200 lb) Actual or estimated Height 1.88 m (6' 2") BP (!) 152/87 Pulse 89 Resp 20 Temp 36.7 ?C (98.1 ?F) Temp source Oral SpO2 97 % Measured on Room air Physical Exam Vitals and nursing note reviewed. Constitutional: General: He is not in acute distress. Appearance: Normal appearance. He is not ill-appearing, toxic-appearing or diaphoretic. HENT: Head: Normocephalic and atraumatic. Right Ear: External ear normal. Left Ear: External ear normal. Nose: Nose normal. Mouth/Throat: Mouth: Mucous membranes are moist. Eyes: Extraocular Movements: Extraocular movements intact. Conjunctiva/sclera: Conjunctivae normal. Cardiovascular: Rate and Rhythm: Normal rate and regular rhythm. Pulmonary: Effort: Pulmonary effort is normal. No respiratory distress. Breath sounds: Normal breath sounds. No wheezing, rhonchi or rales. Abdominal: General: There is no distension. Palpations: Abdomen is soft. Tenderness: There is no abdominal tenderness. There is left CVA tenderness (left CVA / low lumbar ttp). There is no right CVA tenderness. Musculoskeletal: General: Normal range of motion. Cervical back: Normal range of motion. Comments: No spinous process ttp Skin: General: Skin is warm and dry. Neurological: General: No focal deficit present. Mental Status: He is alert. Psychiatric: Mood and Affect: Mood normal. Behavior: Behavior normal. Thought Content: Thought content normal. Judgment: Judgment normal. Radiology: CT ABDOMEN PELVIS WO CONTRAST Final Result EXAM: CT ABDOMEN PELVIS WO CONTRAST HISTORY: 74 years old Male with left flank pain of less than a day duration. Flank pain, kidney stone suspected acute onset left flank pain COMPARISON: None available TECHNIQUE AND FINDINGS: Contiguous axial imaging from the level of the lung bases through the pubic symphysis was performed after administration of intravenous contrast. Coronal and sagittal reconstructions were obtained. Auto mA and/or iterative reconstruction were used to reduce radiation dose. FINDINGS: LOWER THORAX: The lungs bases are clear. No cardiomegaly. LIVER: No focal hepatic lesions. Normal contour. GALLBLADDER AND BILIARY TREE: No biliary ductal dilation. No gallbladder wall thickening. SPLEEN: No splenomegaly. No focal lesions identified. PANCREAS: No ductal dilation or masses identified ADRENAL GLANDS: A 1.8 cm hypodense left adrenal nodule with density of approximately 7 HU compatible with adenoma. Normal right adrenal gland. KIDNEYS: A 4 mm distal left ureteric stone noted just proximal to the UVJ with administration moderate left hydroureteronephrosis. Left kidney is relatively enlarged when diffuse perinephric stranding is noted. No masses are noted in this limited study. The right kidney is unremarkable. PERITONEUM AND RETROPERITONEUM: No free air or fluid. LYMPH NODES: No lymphadenopathy. GI TRACT: No dilation or wall thickening. Appendix is normal. PELVIS/BLADDER: The urinary bladder is partially distended. Mild circumferential urinary bladder wall thickening is noted. The prostate is moderately enlarged. The right testis is not visualized in view. The left testis is normal. A small fat-containing right inguinal hernia is noted. Multiple obstructive phleboliths are present. A few round calcifications in the pelvis may represent sequela of chronic omental infarct (series 2, image 106, 110) VESSELS: Mild atherosclerotic calcification of the abdominal aorta is noted. BONES AND SOFT TISSUES: Multilevel degenerative change of the lumbar spine the form of disc space narrowing, vacuum disc phenomenon, Schmorl's nodes and facet arthrosis. Grade 1 anterolisthesis of L4 over L5. No suspicious lytic or sclerotic bony lesions. IMPRESSION 1. A 4 mm distal ureteric calculus with upstream moderate hydroureteronephrosis. 2. Moderate prostatomegaly. Mild urinary bladder wall thickening could be from underdistention, chronic bladder outlet obstruction, or cystitis. 3. A 1.8 cm left adrenal adenoma. Moderate multilevel degenerative changes of the lumbar spine as detailed. Preliminary Report Dictated by Resident: Armin Baez MD., have reviewed this study and agree with the above report. Lab Results: Lab Results CBC WITH DIFF - Abnormal Result Value Ref Range WBC 8.25 4.20 - 10.70 10*3/?L RBC 4.50 4.26 - 5.52 10*6/?L HGB 12.9 12.2 - 16.4 g/dL HCT 40.3 38.4 - 49.3 % MCV 89.6 81.7 - 95.6 fL MCH 28.7 26.1 - 32.7 pg MCHC 32.0 31.2 - 35.0 g/dL RDW-SD 45.4 38.5 - 51.6 fL RDW-CV 13.8 12.1 - 15.4 % PLT 187 150 - 328 10*3/?L MPV 11.7 9.8 - 13.0 fL NRBC/100 WBC 0.0 0.0 - 10.0 /100 WBCs NRBC x10 3 <0.01 10*3/?L GRAN MAT (NEUT) % 63.4 % IMM GRAN % 0.50 % LYMPH % 23.9 % MONO % 12.0 % EOS % 0.1 % BASO % 0.1 % GRAN MAT x10 3 (ANC) 5.23 1.99 - 6.95 10*3/uL IMM GRAN x10 3 0.04 0.00 - 0.06 10*3/uL LYMPH x10 3 1.97 1.09 - 3.23 10*3/uL MONO x10 3 0.99 0.36 - 1.02 10*3/uL EOS x10 3 <0.03 (*) 0.06 - 0.53 10*3/uL BASO x10 3 <0.03 0.01 - 0.09 10*3/uL COMP. METABOLIC PANEL (39240) - Abnormal NA 139 135 - 145 mmol/L K 4.2 3.5 - 5.0 mmol/L CL 103 98 - 108 mmol/L CO2 TOTAL 30 23 - 31 mmol/L AGAP 6 2 - 16 BUN 23 7 - 23 mg/dL GLUCOSE 125 (*) 70 - 110 mg/dL CREATININE 1.18 0.60 - 1.25 mg/dL TOTAL BILI 0.9 0.1 - 1.1 mg/dL CALCIUM 9.4 8.6 - 10.6 mg/dL T PROTEIN 8.4 (*) 6.3 - 8.2 g/dL ALBUMIN 4.7 3.5 - 5.0 g/dL ALK PHOS 46 34 - 122 U/L ALTv 21 5 - 50 U/L AST(SGOT) 39 13 - 40 U/L eGFR 65.6 mL/min/1.73m2 URINALYSIS - Abnormal APPEARANCE Slightly Cloudy (*) Clear COLOR [place] (*) Yellow PH 5.0 4.8 - 8.0 SP GRAVITY 1.027 1.003 - 1.030 GLU U QUAL Normal Normal BLOOD 3+ (*) Negative KETONES Negative Negative PROTEIN 30 mg/dL (*) Negative UROBILIN Normal Normal BILIRUBIN Negative Negative NITRITE Negative Negative LEUK NICOLE Negative Negative RBC/HPF >182 (*) 0 - 3 HPF WBC/HPF 3 0 - 5 HPF BACTERIA Negative Negative MUCOUS Moderate (*) Negative LPF LIPASE - Normal LIPASE 187 0 - 220 U/L EKG: If EKG completed, see Procedure Note. Orders and Treatments: Orders Placed This Encounter Procedures CT ABDOMEN PELVIS WO CONTRAST CBC WITH DIFF COMP. METABOLIC PANEL (09827) LIPASE URINALYSIS Orders Placed This Encounter Medications morpHINE (4 mg/mL) injection 4 mg ketorolac (TORADOL) injection 15 mg ondansetron (ZOFRAN (PF)) injection 8 mg tamsulosin (FLOMAX) capsule 0.4 mg tamsulosin 0.4 mg 24 hr capsule HYDROcodone-acetaminophen 5-325 mg tablet ondansetron 4 mg tablet First Provider Eval: ED Events Date/Time Event User Comments 07/26/24817 Medical Screening Begins JULIA CRUZ MD -- 07/26/24817 First Provider Evaluation JULIA CRUZ MD -- ED COURSE Diagnosis/Impression as of 07/26/24 1115 Flank pain Nausea and vomiting, unspecified vomiting type Left ureteral stone Enlarged prostate Adrenal adenoma, left Procedures: Procedures MDM: Medical Decision Making Primary impression: flank pain Secondary impression: nausea with vomiting Differential Diagnoses, including but not limited to: electrolyte / glucose abnl, anemia, TATYANA, kidney stone, neoplasm, radiculopathy Problems Addressed: Adrenal adenoma, left: chronic illness or injury Enlarged prostate: chronic illness or injury Flank pain: acute illness or injury Left ureteral stone: acute illness or injury Nausea and vomiting, unspecified vomiting type: acute illness or injury Amount and/or Complexity of Data Reviewed Independent Historian: spouse Details: Self, spouse Labs: ordered. Decision-making details documented in ED Course. Radiology: ordered. Decision-making details documented in ED Course. Discussion of management or test interpretation with external provider(s): N/a Risk OTC drugs. Prescription drug management. Parenteral controlled substances. Risk Details: Unremarkable OBS in ED. Symptoms resolved. Findings and plan discussed with patient and spouse. Kidney stone in distal ureter plus incidental findings. No findings that require acute hospitalization today. Urology clinic referral placed today. Flowsheet Documentation: Scoring Tools: No data recorded Disposition/Condition: ED Disposition ED Disposition Disch - Home Condition Stable Comment -- Discharge Medications: Patient's Medications START taking these medications HYDROCODONE-ACETAMINOPHEN 5-325 MG TABLET Take 1 tablet by mouth every 4 (four) hours as needed (pain) for up to 7 days. Indications: acute pain ONDANSETRON 4 MG TABLET 1 or 2 tablets every 8 hours as needed for nausea TAMSULOSIN 0.4 MG 24 HR CAPSULE Take 1 capsule by mouth at bedtime. CONTINUE taking these medications which have NOT CHANGED No medications on file START taking Modified Medications as Prescribed No medications on file STOP taking these medications No medications on file Follow-up: Urology PCP Electronically signed by: Julia Cruz MD 07/26/24 1115 [facility]
[2024-08-01] MEDS ORDERED: METHYLPREDNISOLONE 125 MG INJ ONE (19:42)
[2024-08-01] MEDS ORDERED: FAMOTIDINE 20 MG/2 ML VIAL IV ONE (19:43)
--- NOTE | 2024-08-01 20:17 | ER ---
Nurse's Notes [facility] Name: Sixto Rouse Age: 74 yrs Sex: Male : 1950 Arrival Date: 08/01/2024 Time: 18:50 Bed 8 Private MD: Diagnosis: Allergic Reaction;UTI/ Urinary tract infection, site not specified Presentation: 08/01 18:57 Chief complaint: EMS states: ALLERGIC REACTION TO LEVOQUIN. COMPLAINED OF SOB, db DIFFICULTY BREATHING AND FLUSH AND ITCH. TODAY IS FIRST DOSE. GIVEN EPI AND BENADRYL BY EMS. Onset of symptoms was August 01, 2024. Care prior to arrival: Medication(s) given: IV initiated. 20 GA, in the left antecubital area. 18:57 Acuity: WAYNE 2 db 19:00 Coronavirus screen: Client denies travel out of the [place] in the last 14 days. At this db time, the client does not indicate any symptoms associated with coronavirus-19. Ebola Screen: Patient negative for fever greater than or equal to 101.5 degrees Fahrenheit, and additional compatible Ebola Virus Disease symptoms Patient denies exposure to infectious person. Patient denies travel to an Ebola-affected area in the 21 days before illness onset. No symptoms or risks identified at this time. Onset: The symptoms/episode began/occurred suddenly. Anaphylaxis evaluation, the patient reports or I have noted the following symptoms which indicate a significant risk of anaphylaxis: shortness of breath. Initial Sepsis Screen: Does the patient meet any 2 criteria? No. Patient's initial sepsis screen is negative. Does the patient have a suspected source of infection? No. Patient's initial sepsis screen is negative. Risk Assessment: Do you want to hurt yourself or someone else? Patient reports no desire to harm self or others. 19:00 Method Of Arrival: EMS: [facility] db Triage Assessment: 19:05 General: Appears in no apparent distress. uncomfortable, Behavior is calm, cooperative. db Pain: Denies pain. Neuro: Level of Consciousness is awake, alert, obeys commands, Oriented to person, place, time, situation. Respiratory: Airway is patent Respiratory effort is even, unlabored, Respiratory pattern is regular, symmetrical. Derm: Rash noted that is. Historical: - Allergies: 19:05 Levaquin; db - PMHx: 19:05 Arthritis; Hernia; insomnia; db - Immunization history:: Adult Immunizations unknown. - Infectious Disease History:: Denies. - Social history:: Smoking status: Patient reports the use of cigarette tobacco products, smokes one pack cigarettes per day. Screenin:10 [facility] ED Fall Risk Assessment (Adult) History of falling in the last 3 months, dd2 including since admission No falls in past 3 months (0 pts) Confusion or Disorientation No (0 pts) Intoxicated or Sedated No (0 pts) Impaired Gait No (0 pts) Mobility Assist Device Used No (0 pt) Altered Elimination No (0 pt) Score/Fall Risk Level 0 - 2 = Low Risk Oriented to surroundings, Maintained a safe environment, Educated pt \T\ family on fall prevention, incl call for assistance when getting out of bed, Hourly rounding (assess needs \T\ fall precautionary measures) done. Abuse screen: Denies threats or abuse. Nutritional screening: No deficits noted. Tuberculosis screening: No symptoms or risk factors identified. Assessment: 20:10 General: Appears in no apparent distress. Behavior is calm, cooperative, appropriate dd2 for age. Pain: Denies pain. Neuro: Level of Consciousness is awake, alert, obeys commands, Oriented to person, place, time, situation, Appropriate for age. Cardiovascular: Patient's skin is warm and dry. Respiratory: Airway is patent Respiratory effort is even, unlabored, Respiratory pattern is regular, symmetrical, Breath sounds are clear. GI: No deficits noted. No signs and/or symptoms were reported involving the gastrointestinal system. : No deficits noted. No signs and/or symptoms were reported regarding the genitourinary system. EENT: No deficits noted. No signs and/or symptoms were reported regarding the EENT system. Derm: No deficits noted. No signs and/or symptoms reported regarding the dermatologic system. Skin is healthy with good turgor, Skin is dry, Skin is pink, warm \T\ dry. Skin temperature is warm. Musculoskeletal: No deficits noted. No signs and/or symptoms reported regarding the musculoskeletal system. Vital Signs: 18:55 BP 167 / 70; Pulse 94; Resp 18; Temp 98.4; Pulse Ox 99% ; Weight 90.72 kg; Height 6 ft. db 2 in. ; 19:00 BP 156 / 76; Pulse 89; Resp 18; Pulse Ox 99% on R/A; al5 19:30 BP 150 / 72; Pulse 86; Resp 18; Pulse Ox 97% on R/A; al5 20:10 BP 157 / 77; Pulse 88; Resp 16; Pulse Ox 99% ; dd2 18:55 Body Mass Index 25.68 (90.72 kg, 187.96 cm) db [place] Coma Score: 20:10 Eye Response: spontaneous(4). Motor Response: obeys commands(6). Verbal Response: dd2 oriented(5). Total: 15. ED Course: 18:54 Patient arrived in ED. db 18:58 Triage completed. db 19:00 Arm band placed on Patient placed in an exam room. db 19:08 Demario Rivas DO is Attending Physician. ms3 19:15 Alva Anand, MATTHEW is Primary Nurse. al5 20:10 Patient has correct armband on for positive identification. Bed in low position. Call dd2 light in reach. Provided Education on: call light, medications, s/s of reaction. Client placed on continuous cardiac and pulse oximetry monitoring. NIBP monitoring applied. Door closed. Noise minimized. Warm blanket given. Pillow given. PO fluids given. Verbal reassurance given. 20:10 No provider procedures requiring assistance completed. Maintain EMS IV. Dressing dd2 intact. Good blood return noted. Site clean \T\ dry. Gauge \T\ site: 20g lac. Flushed with 10 mL NS. Patient maintains SpO2 saturation greater than 95% on room air. 20:39 IV discontinued, intact, bleeding controlled, No redness/swelling at site. Pressure al5 dressing applied. Administered Medications: 19:49 Drug: MethylPrednisoLONE IVP 125 mg IVP once Route: IVP; Site: left antecubital; dd2 20:39 Follow up: Response: No adverse reaction; Marked relief of symptoms al5 19:50 Drug: Famotidine IVP 20 mg IVP once; dilute with 10 mL 0.9% NaCl; give over 2 minutes dd2 Route: IVP; Site: left antecubital; 20:39 Follow up: Response: No adverse reaction; Marked relief of symptoms al5 Medication: 20:10 VIS not applicable for this client. dd2 Outcome: 20:16 Discharge ordered by . ms3 20:39 Discharged to home ambulatory, with significant other, al5 20:39 Condition: good 20:39 Discharge instructions given to patient, significant other, Instructed on discharge instructions, follow up and referral plans. medication usage, Demonstrated understanding of instructions, follow-up care, medications, Prescriptions given X 2, 20:40 Patient left the ED. al5 Signatures: Demario Rivas, DO ms3 Michelle Umana RN RN db Alva Anand RN RN al5 PRABHJOT JAUREGUI RN RN dd2
--- NOTE | 2024-08-01 20:17 | EDPHYS ---
Physician Documentation [facility] Name: Sixto Rouse Age: 74 yrs Sex: Male : 1950 Arrival Date: 08/01/2024 Time: 18:50 Bed 8 Private MD: ED Physician Demario Rivas HPI: 08/01 20:35 This 74 yrs old Male presents to ER via EMS with complaints of Allergic Reaction. ms3 20:35 74-year-old male with past medical history of arthritis, hernia, insomnia presents to [facility] the emergency department via [facility] for allergic reaction after taking Levaquin for urinary tract infection. Patient states he was seen at [facility] urgent care today and diagnosed with a urinary tract infection and prescribed Levaquin. Patient states he took his first dose and broke out in a rash, began itching, and began swelling. EMS administered 0.3 mg epinephrine, 25 mg of Benadryl, IV fluids. Patient symptoms resolving on arrival to the emergency department.. Historical: - Allergies: 19:05 Levaquin; db - PMHx: 19:05 Arthritis; Hernia; insomnia; db - Immunization history:: Adult Immunizations unknown. - Infectious Disease History:: Denies. - Social history:: Smoking status: Patient reports the use of cigarette tobacco products, smokes one pack cigarettes per day. ROS: 20:35 Constitutional: Negative for fever, and chills. Cardiovascular: Negative for chest ms3 pain, and palpitations. Respiratory: Negative for shortness of breath, cough, wheezing, and pleuritic chest pain, Abdomen/GI: Negative for abdominal pain, nausea, vomiting, diarrhea, and constipation, MS/Extremity: Negative for injury and deformity, 20:35 Skin: Positive for rash, swelling, Exam: 20:35 Constitutional: This is a well developed, well nourished patient who is awake, alert, ms3 and in no acute distress. Head/Face: Normocephalic, atraumatic. Neck: Trachea midline, no cervical lymphadenopathy. Supple, full range of motion without nuchal rigidity, or vertebral point tenderness. No Meningismus. Chest/axilla: Normal chest wall appearance and motion. Nontender with no deformity. Cardiovascular: Regular rate and rhythm with a normal S1 and S2. No gallops, murmurs, or rubs. Normal PMI, no JVD. No pulse deficits. Respiratory: Lungs have equal breath sounds bilaterally, clear to auscultation and percussion. No rales, rhonchi or wheezes noted. No increased work of breathing, no retractions or nasal flaring. Abdomen/GI: Soft, non-tender, with normal bowel sounds. No distension or tympany. No guarding or rebound. No evidence of tenderness throughout. 20:35 Skin: urticaria, on the right arm and left arm, Vital Signs: 18:55 BP 167 / 70; Pulse 94; Resp 18; Temp 98.4; Pulse Ox 99% ; Weight 90.72 kg; Height 6 ft. db 2 in. ; 19:00 BP 156 / 76; Pulse 89; Resp 18; Pulse Ox 99% on R/A; al5 19:30 BP 150 / 72; Pulse 86; Resp 18; Pulse Ox 97% on R/A; al5 20:10 BP 157 / 77; Pulse 88; Resp 16; Pulse Ox 99% ; dd2 18:55 Body Mass Index 25.68 (90.72 kg, 187.96 cm) db Bladimir Coma Score: 20:10 Eye Response: spontaneous(4). Motor Response: obeys commands(6). Verbal Response: dd2 oriented(5). Total: 15. MDM: 19:25 Medical Screening Exam initiated ms3 20:35 Differential diagnosis: anaphylaxis, angioedema, urticaria. Data reviewed: vital signs, ms3 nurses notes, and as a result, I will discharge patient. I considered the following discharge prescriptions or medication management in the emergency department Medications were administered in the Emergency Department. See MAR. Historians other than the Patient: EMS: [facility]. Counseling: I had a detailed discussion with the patient and/or guardian regarding the historical points, exam findings, and any diagnostic results supporting the discharge/admit diagnosis, the need for outpatient follow up, to return to the emergency department if symptoms worsen or persist or if there are any questions or concerns that arise at home. Special discussion: I discussed with the patient/guardian in detail that at this point there is no indication for admission to the hospital. It is understood, however, that if the symptoms persist or worsen the patient needs to return immediately for re-evaluation. ED course: On reevaluation patient symptoms improved, patient is alert and oriented x 4, no apparent distress, nontoxic-appearing, speaking full sentences, rash resolved. Patient given prescription for cefpodoxime to replace Levaquin. Patient instructed not to take additional Levaquin. All questions were answered. Return precautions discussed include worsening symptoms, or any other concerns. Patient to follow-up with his primary care physician in 2 to 3 days. Administered Medications: 19:49 Drug: MethylPrednisoLONE IVP 125 mg IVP once Route: IVP; Site: left antecubital; dd2 20:39 Follow up: Response: No adverse reaction; Marked relief of symptoms al5 19:50 Drug: Famotidine IVP 20 mg IVP once; dilute with 10 mL 0.9% NaCl; give over 2 minutes dd2 Route: IVP; Site: left antecubital; 20:39 Follow up: Response: No adverse reaction; Marked relief of symptoms al5 Disposition Summary: 08/01/24 20:16 Discharge Ordered Notes: Location: Home ms3 Condition: Stable ms3 Diagnosis - Allergic Reaction ms3 - UTI/ Urinary tract infection, site not specified ms3 Followup: ms3 - With: Private Physician - When: 2 - 3 days - Reason: Recheck today's complaints Discharge Instructions: - Discharge Summary Sheet ms3 - Urinary Tract Infection, Adult, [id number] ms3 - Anaphylactic Reaction, Adult, [id number] ms3 Forms: - Medication Reconciliation Form ms3 - Antibiotic Education ms3 - Prescription Opioid Use ms3 - Patient Portal Instructions ms3 - Leadership Thank You Letter ms3 Prescriptions: - Prednisone 20 mg Oral Tablet - take 2 tablets ORAL route once daily for 5 days; 10 tablet; Refills: 0, Product ms3 Selection Permitted - cefpodoxime 200 mg Oral tablet - take 1 tablet ORAL route every 12 hours with food; 14 tablet; Refills: 0, ms3 Product Selection Permitted Signatures: Demario Rivas DO DO ms3 Michelle Umana RN RN db PRABHJOT JAUREGUI RN RN dd2 Alva Anand RN al5
[2024-08-01 23:26] VITALS: TEMP 98.4
[2024-08-01 23:29] VITALS: BP 157/77; O2SAT 99
== END 2024-08-01 20:40 | disposition home or self-care (01) ==
LOC: ER 18:50
DX: R21 Rash and other nonspecific skin eruption (principal); N39.0 Urinary tract infection, site not specified; F17.210 Nicotine dependence, cigarettes, uncomplicated; Z88.1 Allergy status to other antibiotic agents
CPT/HCPCS: 96375; 96374; 99284; J2919